=== PATIENT | male | born 1955 | race Caucasian/White ===

== ENCOUNTER 2016-07-21 | Outpatient (CLI) | payer OTHER | END 2016-07-21 00:37 | disposition critical access hospital (66) | DX: R41.82 Altered mental status, unspecified (principal) | CPT/HCPCS: A0425; A0429 ==

== ENCOUNTER 2016-07-21 03:20 | Emergency (ER) | payer OTHER ==
[2016-07-21] MEDS ORDERED: OLANZapine ODT 5 MG TABLET TL ONE (03:58)
[2016-07-21] MEDS ORDERED: LORazepam 0.5 MG TABLET ONE (03:58)
== END 2016-07-21 05:27 | disposition home or self-care (01) ==
DX: F91.9 Conduct disorder, unspecified (principal); R47.89 Other speech disturbances; C43.9 Malignant melanoma of skin, unspecified
CPT/HCPCS: 99283; 99284; A9270

== ENCOUNTER 2016-09-08 10:35 | Emergency (ER) | payer OTHER | END 2016-09-08 12:41 | disposition home or self-care (01) | DX: S09.90XA Unspecified injury of head, initial encounter (principal); W01.0XXA Fall on same level from slipping, tripping and stumbling without subsequent striking against object, initial encounter; F41.9 Anxiety disorder, unspecified; R03.0 Elevated blood-pressure reading, without diagnosis of hypertension; Z85.828 Personal history of other malignant neoplasm of skin ==

== ENCOUNTER 2016-11-29 12:44 | Emergency (ER) | payer OTHER ==
--- NOTE | 2016-11-29 15:38 | ED Physician Documentation ---
PD HPI MHE - Stated complaint Stated Complaint: MHE - Chief complaint Chief Complaint: MHE - History obtained from History obtained from: Patient, Family - History of Present Illness Primary symptom: Depression, Anxiety, Other (insomnia) Timing - onset: Other (he has had some depression, anxiety, and sometimes agitation since chemo ended 09/2015. Has been on several meds without good effect. Seen by PMD yesterday and started on lithium. He says he has had marked polyuria, feeling lightheaded, and nauseated. Feels it is side effects of the lighium.) Contributing factors: Sig other. No: Substance abuse - ETOH, Substance abuse - drugs Similar symptoms before: Diagnosis Review of Systems Constitutional: denies: Fever, Chills Nose: denies: Rhinorrhea / runny nose, Congestion Throat: denies: Sore throat Cardiac: denies: Chest pain / pressure Respiratory: denies: Dyspnea, Cough GI: denies: Abdominal Pain, Nausea, Vomiting, Constipation : reports: Frequency. denies: Dysuria Musculoskeletal: reports: Back pain Neurologic: reports: Generalized weakness PD PAST MEDICAL HISTORY - Past Medical History Past Medical History: Yes Cardiovascular: None Respiratory: None Neuro: None Endocrine/Autoimmune: None GI: None : None HEENT: None Psych: Other Musculoskeletal: None Derm: Other - Past Surgical History Past Surgical History: Yes - Present Medications Home Medications: Ambulatory Orders Medication Instructions Recorded Confirmed Flaxseed Oil [Flaxseed Oil] 1,000 mg PO QAM 10/19/13 11/29/16 Losartan [Cozaar] 100 mg PO QAM 10/19/13 11/29/16 Simvastatin [Zocor] 20 mg PO HS 10/19/13 11/29/16 Tumeric 500 mg PO DAILY 10/19/13 11/29/16 Ubidecarenone [Coq-10] 200 mg PO QAM 10/19/13 11/29/16 Vitamin B Complex Vit C No.4 1,200 mg PO QAM 10/19/13 11/29/16 [Super B Complex] Cholecalciferol (Vitamin D3) 30,000 unit PO DAILY 09/20/14 11/29/16 [Vitamin D3] Amlodipine Besylate 10 mg PO DAILY 06/20/15 11/29/16 Citalopram Hydrobromide [Celexa] 1 tab PO DAILY 08/20/16 11/29/16 Clonazepam 2 mg PO DAILY 10/22/16 11/29/16 Pony 300 mg PO BID 11/29/16 11/29/16 Olanzapine [Zyprexa] 5 mg PO DAILY #30 tablet 11/29/16 - Allergies Allergies/Adverse Reactions: Allergies Allergy/AdvReac Type Severity Reaction Status Date / Time erythromycin base AdvReac Unknown unknown Verified 09/08/16 10:44 [Erythromycin Base] - Social History Does the pt smoke?: No Smoking Status: Never smoker Does the pt drink ETOH?: No Does the pt have substance abuse?: No - Immunizations Immunizations are current?: No Immunizations: TDAP >10years/unknown PD ED PE NORMAL - Vitals Vital signs reviewed: Yes - General General: Alert and oriented X 3, No acute distress, Well developed/nourished - HEENT HEENT: Atraumatic - Neck Neck: Supple, no meningeal sign, No adenopathy - Cardiac Cardiac: RRR, No murmur - Respiratory Respiratory: No respiratory distress - Abdomen Abdomen: Normal bowel sounds, Soft - Back Back: No CVA TTP - Derm Derm: Normal color, Warm and dry, No rash - Extremities Extremities: Normal ROM s pain, No edema, No calf tenderness / cord Results - Vitals Vitals: Vital Signs - 24 hr 11/29/16 11/29/16 12:48 17:14 Temperature 36.5 C 36.5 C Heart Rate 92 78 Respiratory 18 16 Rate Blood Pressure 152/83 H 157/83 H O2 Saturation 97 100 Oxygen O2 Source Room air - Labs Labs: Laboratory Tests 11/29/16 11/29/16 15:15 15:25 Sodium 140 Potassium 4.1 Chloride 103 Carbon Dioxide 26 Anion Gap 11.0 BUN 18 Creatinine 0.8 Estimated GFR (MDRD) 99 Glucose 123 H Calcium 10.1 Total Bilirubin 0.4 AST 33 ALT 49 Alkaline Phosphatase 51 Total Protein 8.3 H Albumin 5.2 Globulin 3.1 Albumin/Globulin Ratio 1.7 Lipase 19 L Urine Opiates Screen NEGATIVE Ur Oxycodone Screen NEGATIVE Urine Methadone Screen NEGATIVE Ur Propoxyphene Screen NEGATIVE Ur Barbiturates Screen NEGATIVE Ur Tricyclics Screen NEGATIVE Ur Phencyclidine Scrn NEGATIVE Ur Amphetamine Screen NEGATIVE U Methamphetamines Scrn NEGATIVE U Benzodiazepines Scrn NEGATIVE Urine Cocaine Screen NEGATIVE U Cannabinoids Screen NEGATIVE Ethyl Alcohol < 5.0 PD MEDICAL DECISION MAKING - ED course Complexity details: considered differential (Patient having side effect from the lithium with just starting it. He and friend say he did well with dose of med he got when he was here few months ago. This was Zyprexa, and this could be good alternative for treating his condition. Talked with Dr. Abarca whoa greed and said to give it a try. ), d/w patient, d/w [employer] consultant (Dr. Abarca) Departure - Departure Disposition: 01 Home, Self Care Clinical Impression: Schizoaffective disorder Qualifiers: Schizoaffective disorder type: unspecified Qualified Code(s): F25.9 - Schizoaffective disorder, unspecified Condition: Stable Record reviewed to determine appropriate education?: Yes Instructions: ED Schizo Affective Disorder Follow-Up: Brock Abarca MD [Primary Care Provider] - Prescriptions: Olanzapine [Zyprexa] 5 mg PO DAILY #30 tablet Comments: Stop the Pony, keep at current dose of the Clonazepam for now. Add Zyprexa 5 mg at night daily. Follow up with Dr. Abarca in a week. Discharge Date/Time: 11/29/16 17:16
[2016-11-29 15:48] LABS: ALBUMIN/GLOBULIN RATIO 1.7 (1.0-2.2); BILIRUBIN,TOTAL 0.4 mg/dL (0.2-1.0); BUN - BLOOD UREA NITROGEN 18 mg/dL (6-20); CALCIUM 10.1 mg/dL (8.5-10.3); CARBON DIOXIDE - CO2 26 mmol/L (21-32); CHLORIDE 103 mmol/L (101-111); CREATININE 0.8 mg/dL (0.6-1.2); GFR - MDRD 99 (>89); GLUCOSE 123 mg/dL (70-100); LIPASE 19 U/L (22-51); POTASSIUM 4.1 mmol/L (3.5-5.0); SODIUM 140 mmol/L (135-145); TOTAL PROTEIN 8.3 g/dL (6.7-8.2)
[2016-11-29] MEDS ORDERED: OLANZapine ODT 5 MG TABLET TL ONE (16:22)
[2016-11-29] MEDS: OLANZapine ODT 5 MG TABLET TL ONE (16:24)
[2016-11-29 17:14] VITALS: BP 157/83
== END 2016-11-29 17:16 | disposition home or self-care (01) ==
LOC: ED 12:44
DX: F25.9 Schizoaffective disorder, unspecified (principal); Z79.899 Other long term (current) drug therapy
CPT/HCPCS: 36415; 80053; 80306; 80320; 83690; 99283; A9270

== ENCOUNTER 2016-12-06 08:07 | Emergency (ER) | payer OTHER ==
[2016-12-06 08:46] LABS: BASOPHILS # (AUTO) 0.1 10^3/uL (0.0-0.1); BASOPHILS % (AUTO) 1.4 %; EOSINOPHILS # (AUTO) 0.2 10^3/uL (0.0-0.7); EOSINOPHILS % (AUTO) 2.8 %; HCT - HEMATOCRIT 42.9 % (42.0-52.0); HGB - HEMOGLOBIN 14.5 g/dL (14.0-18.0); LYMPHOCYTES # (AUTO) 1.8 10^3/uL (1.5-3.5); LYMPHOCYTES % (AUTO) 25.7 %; MEAN CORPUSCULAR HEMOGLOBIN 31.5 pg (27.0-31.0); MEAN CORPUSCULAR HGB CONC 33.7 g/dL (32.0-36.0); MEAN CORPUSCULAR VOLUME 93.6 fL (80.0-94.0); MONOCYTES # (AUTO) 0.6 10^3/uL (0.0-1.0); NEUTROPHILS # (AUTO) 4.5 10^3/uL (1.5-6.6); NEUTROPHILS % (AUTO) 62.1 %; RED BLOOD COUNT 4.59 10^6/uL (4.70-6.10); RED CELL DISTRIBUTION WIDTH 13.2 % (12.0-15.0); UNCORRECTED WHITE BLOOD COUNT 7.2 x10^3/uL; WHITE BLOOD COUNT 7.2 x10^3/uL (4.8-10.8)
[2016-12-06] MEDS ORDERED: OLANZapine ODT 5 MG TABLET TL ONE ×2 (08:49→08:55)
--- NOTE | 2016-12-06 08:51 | ED Physician Documentation ---
PD HPI MHE - Stated complaint Stated Complaint: MHE - Chief complaint Chief Complaint: MHE - History of Present Illness Primary symptom: Depression, Anxiety, Medical clearance. No: Suicidal ideation , Suicide attempt, Psychosis Timing - onset: How many months ago (has been having problems for months, worsening the past couple of weeks. Improved some with Zyprexa the past week, but not much.) Contributing factors: Other (Thought to be related to chemotherapy meds last September 2015, with depression and anxiety since that time.). No: Family ( is very supportive), Substance abuse - ETOH, Substance abuse - drugs Recently seen: Clinic (PMD Dr. Abarca), Emergency Dept (a week ago), Other ( talked with [facility] and has tentative arrangements for inpatient admission, and referred to ER for medical clearance by Juila intake nurse at [facility].) Review of Systems Constitutional: denies: Fever, Chills Eyes: denies: Loss of vision Nose: denies: Rhinorrhea / runny nose, Congestion Throat: denies: Sore throat Cardiac: denies: Chest pain / pressure Respiratory: denies: Cough GI: denies: Abdominal Pain, Vomiting, Diarrhea : denies: Dysuria Neurologic: denies: Focal weakness, Numbness, Syncope, Headache, Head injury Psychiatric: reports: Depressed, Anxiety, Insomnia (though Zyprexa the past week at night has helped him sleep a bit better). denies: Suicidal, Homicidal Immunocompromised: denies: Chemotherapy (not currently, finished chemo September 2015) PD PAST MEDICAL HISTORY - Past Medical History Cardiovascular: None Respiratory: None Neuro: None Endocrine/Autoimmune: None GI: None : None HEENT: None Psych: Other Musculoskeletal: None Derm: Other - Past Surgical History Past Surgical History: Yes - Present Medications Home Medications: Ambulatory Orders Medication Instructions Recorded Confirmed Flaxseed Oil [Flaxseed Oil] 1,000 mg PO QAM 10/19/13 12/06/16 Losartan [Cozaar] 100 mg PO QAM 10/19/13 12/06/16 Simvastatin [Zocor] 20 mg PO HS 10/19/13 12/06/16 Tumeric 500 mg PO DAILY 10/19/13 12/06/16 Ubidecarenone [Coq-10] 200 mg PO QAM 10/19/13 12/06/16 Vitamin B Complex Vit C No.4 1,200 mg PO QAM 10/19/13 12/06/16 [Super B Complex] Cholecalciferol (Vitamin D3) 30,000 unit PO DAILY 09/20/14 12/06/16 [Vitamin D3] Amlodipine Besylate 10 mg PO DAILY 06/20/15 12/06/16 Citalopram Hydrobromide [Celexa] 1 tab PO DAILY 08/20/16 12/06/16 Clonazepam 2 mg PO DAILY 10/22/16 12/06/16 Olanzapine [Zyprexa] 5 mg PO DAILY #30 tablet 11/29/16 12/06/16 - Allergies Allergies/Adverse Reactions: Allergies Allergy/AdvReac Type Severity Reaction Status Date / Time erythromycin base AdvReac Unknown unknown Verified 12/06/16 08:13 [Erythromycin Base] - Social History Does the pt smoke?: No Smoking Status: Never smoker Does the pt drink ETOH?: No Does the pt have substance abuse?: No - Immunizations Immunizations are current?: No Immunizations: TDAP >10years/unknown PD ED PE NORMAL - Vitals Vital signs reviewed: Yes - General General: Alert and oriented X 3, Well developed/nourished - HEENT HEENT: Pharynx benign - Neck Neck: Supple, no meningeal sign, No adenopathy - Cardiac Cardiac: RRR, No murmur - Respiratory Respiratory: Clear bilaterally - Derm Derm: Normal color, Warm and dry - Extremities Extremities: Normal ROM s pain - Neuro Neuro: Alert and oriented X 3, No motor deficit, Normal speech - Psych Psych: No: Normal mood (somewhat flat and anxious) Results - Vitals Vitals: Vital Signs - 24 hr 12/06/16 08:11 Temperature 36.1 C L Heart Rate 79 Respiratory 18 Rate Blood Pressure 128/74 O2 Saturation 99 Oxygen O2 Source Room air - Labs Labs: Laboratory Tests 12/06/16 12/06/16 12/06/16 08:39 08:39 08:39 WBC 7.2 RBC 4.59 L Hgb 14.5 Hct 42.9 MCV 93.6 MCH 31.5 H MCHC 33.7 RDW 13.2 Plt Count 314 MPV 8.0 Neut # 4.5 Lymph # 1.8 [place] # 0.6 Eos # 0.2 Baso # 0.1 Absolute Nucleated RBC 0.00 Nucleated RBCs 0.0 Sodium 140 Potassium 4.0 Chloride 102 Carbon Dioxide 29 Anion Gap 9.0 BUN 24 H Creatinine 0.9 Estimated GFR (MDRD) 86 L Glucose 180 H Calcium 9.5 Magnesium 2.0 Total Bilirubin 0.5 AST 27 ALT 35 Alkaline Phosphatase 48 Total Protein 7.3 Albumin 4.1 Globulin 3.2 Albumin/Globulin Ratio 1.3 Lipase 18 L Vitamin B12 821 TSH 0.44 Urine Color Urine Clarity Urine pH Ur Specific [place] Urine Protein Urine Glucose (UA) Urine Ketones Urine Occult Blood Urine Nitrite Urine Bilirubin Urine Urobilinogen Ur Leukocyte Esterase Ur Microscopic Review Urine Culture Comments Urine Opiates Screen Ur Oxycodone Screen Urine Methadone Screen Ur Propoxyphene Screen Ur Barbiturates Screen Ur Tricyclics Screen Ur Phencyclidine Scrn Ur Amphetamine Screen U Methamphetamines Scrn U Benzodiazepines Scrn Urine Cocaine Screen U Cannabinoids Screen Ethyl Alcohol < 5.0 12/06/16 08:58 WBC RBC Hgb Hct MCV MCH MCHC RDW Plt Count MPV Neut # Lymph # [place] # Eos # Baso # Absolute Nucleated RBC Nucleated RBCs Sodium Potassium Chloride Carbon Dioxide Anion Gap BUN Creatinine Estimated GFR (MDRD) Glucose Calcium Magnesium Total Bilirubin AST ALT Alkaline Phosphatase Total Protein Albumin Globulin Albumin/Globulin Ratio Lipase Vitamin B12 TSH Urine Color YELLOW Urine Clarity CLEAR Urine pH 6.0 Ur Specific [place] 1.015 Urine Protein NEGATIVE Urine Glucose (UA) 100 H Urine Ketones NEGATIVE Urine Occult Blood NEGATIVE Urine Nitrite NEGATIVE Urine Bilirubin NEGATIVE Urine Urobilinogen 0.2 (NORMAL) Ur Leukocyte Esterase NEGATIVE Ur Microscopic Review NOT INDICATED Urine Culture Comments NOT INDICATED Urine Opiates Screen NEGATIVE Ur Oxycodone Screen NEGATIVE Urine Methadone Screen NEGATIVE Ur Propoxyphene Screen NEGATIVE Ur Barbiturates Screen NEGATIVE Ur Tricyclics Screen NEGATIVE Ur Phencyclidine Scrn NEGATIVE Ur Amphetamine Screen NEGATIVE U Methamphetamines Scrn NEGATIVE U Benzodiazepines Scrn NEGATIVE Urine Cocaine Screen NEGATIVE U Cannabinoids Screen NEGATIVE Ethyl Alcohol PD MEDICAL DECISION MAKING - ED course Complexity details: reviewed results, considered differential ( is making arrangements for admission to [facility] and the intake nurse directed them to ED for medical clearance as they have bed for admission. ), d/w family, d/w resourcing consultant (BERTRAM Chaidez able to confirm and arrange admission to [facility]. wanting to take pt by [facility] and this was okay per [facility] nurse. ) Departure - Departure Disposition: 65 Psych Hosp/Unit DC/Xfer Clinical Impression: Anxiety, Depression with anxiety Condition: Stable Record reviewed to determine appropriate education?: Yes
[2016-12-06 08:59] LABS: ALBUMIN/GLOBULIN RATIO 1.3 (1.0-2.2); BILIRUBIN,TOTAL 0.5 mg/dL (0.2-1.0); BUN - BLOOD UREA NITROGEN 24 mg/dL (6-20); CALCIUM 9.5 mg/dL (8.5-10.3); CARBON DIOXIDE - CO2 29 mmol/L (21-32); CHLORIDE 102 mmol/L (101-111); CREATININE 0.9 mg/dL (0.6-1.2); GFR - MDRD 86 (>89); GLUCOSE 180 mg/dL (70-100); LIPASE 18 U/L (22-51); SODIUM 140 mmol/L (135-145); TOTAL PROTEIN 7.3 g/dL (6.7-8.2)
[2016-12-06 09:04] LABS: BILIRUBIN,URINE NEGATIVE (NEGATIVE)
[2016-12-06 09:06] LABS: UA CHARGE (STRIP ONLY) YES; UR CULTURE IF IND NOT INDICATED
[2016-12-06 09:44] LABS: THYROID STIMULATING HORMONE 0.44 uIU/mL (0.34-5.60)
[2016-12-06 12:32] VITALS: BP 141/77
== END 2016-12-06 12:42 ==
LOC: ED 08:07
DX: F32.9 Major depressive disorder, single episode, unspecified (principal); F41.9 Anxiety disorder, unspecified
CPT/HCPCS: 36415; 80053; 80306; 80320; 81003; 82607; 83690; 83735; 84443; 85025; 99283; 99284; A9270; 81001; 87086

== ENCOUNTER 2017-08-05 20:25 | Outpatient (CLI) | payer OTHER ==
[2017-08-05 19:07] LABS: BASOPHILS # (AUTO) 0.1 10^3/uL (0.0-0.1); EOSINOPHILS # (AUTO) 0.1 10^3/uL (0.0-0.7); EOSINOPHILS % (AUTO) 1.4 %; HGB - HEMOGLOBIN 14.7 g/dL (14.0-18.0); LYMPHOCYTES # (AUTO) 2.8 10^3/uL (1.5-3.5); LYMPHOCYTES % (AUTO) 28.3 %; MEAN CORPUSCULAR HEMOGLOBIN 31.2 pg (27.0-31.0); MEAN CORPUSCULAR HGB CONC 33.4 g/dL (32.0-36.0); MEAN CORPUSCULAR VOLUME 93.5 fL (80.0-94.0); MEAN PLATELET VOLUME 8.9 fL (7.4-11.4); MONOCYTES # (AUTO) 0.8 10^3/uL (0.0-1.0); MONOCYTES % (AUTO) 7.7 %; NEUTROPHILS # (AUTO) 6.1 10^3/uL (1.5-6.6); NEUTROPHILS % (AUTO) 61.6 %; PLT - PLATELET COUNT 407 10^3/uL (130-450); RED BLOOD COUNT 4.71 10^6/uL (4.70-6.10); RED CELL DISTRIBUTION WIDTH 13.8 % (12.0-15.0); WHITE BLOOD COUNT 9.9 x10^3/uL (4.8-10.8)
[2017-08-05 19:38] LABS: PT - PROTHROMBIN TIME 11.4 secs (9.9-12.6)
== END 2017-08-05 20:26 | disposition home or self-care (01) ==
LOC: LAB.WCP 20:25
PROVIDERS: ATTEND Physician Assistant Medical
DX: Z78.9 Other specified health status (principal)
CPT/HCPCS: 36415; 85025; 85610

== ENCOUNTER 2017-12-05 08:42 | Emergency (ER) | payer OTHER ==
--- NOTE | 2017-12-05 09:41 | ED Physician Documentation ---
PD HPI NVD - Stated complaint Stated Complaint: VOMITING - Chief complaint Chief Complaint: Abd Pain - History obtained from History obtained from: Patient - History of Present Illness Timing - onset: How many days ago (2-3) Timing - duration: Days Timing - details: Gradual onset Associated symptoms: Abdominal pain, Loss of appetite. No: Fever, Chest pain, Near syncope / syncope, Dysuria Contributing factors: Anticoagulated. No: Sick contact, Bad food, Travel Review of Systems Constitutional: reports: Chills, Myalgias. denies: Fever Ears: denies: Ear pain Nose: reports: Congestion. denies: Rhinorrhea / runny nose Cardiac: reports: Chest pain / pressure GI: reports: Abdominal Pain, Nausea PD PAST MEDICAL HISTORY - Past Medical History Past Medical History: Yes Cardiovascular: None Respiratory: None Endocrine/Autoimmune: None GI: None : None HEENT: None Psych: Other Musculoskeletal: None Derm: Other - Past Surgical History Past Surgical History: Yes - Present Medications Home Medications: Ambulatory Orders Medication Instructions Recorded Confirmed Flaxseed Oil [Flaxseed Oil] 1,000 mg PO QAM 10/19/13 08/26/17 Losartan [Cozaar] 100 mg PO QAM 10/19/13 08/26/17 Ubidecarenone [Coq-10] 200 mg PO QAM 10/19/13 08/26/17 Vitamin B Complex Vit C No.4 1,200 mg PO QAM 10/19/13 08/26/17 [Super B Complex] Cholecalciferol (Vitamin D3) 30,000 unit PO DAILY 09/20/14 08/26/17 [Vitamin D3] Amlodipine Besylate 10 mg PO DAILY 06/20/15 08/26/17 clonazePAM [Clonazepam] 0.5 mg PO DAILY 10/22/16 08/26/17 Escitalopram [Lexapro] 10 mg PO DAILY 01/22/17 08/26/17 OLANZapine [Zyprexa] 10 mg PO DAILY 05/27/17 08/26/17 Dextroamphetamine/Amphetamine 1 cap PO DAILY 08/26/17 08/26/17 [Adderall Xr 5 mg Capsule] Guanfacine HCl 1 tab PO DAILY 08/26/17 08/26/17 Propranolol [Inderal] 2 tab PO DAILY 08/26/17 08/26/17 Docusate Sodium 100 mg PO DAILY #30 capsule 12/05/17 Ondansetron Odt [Zofran] 4 mg TL Q6H PRN #15 tablet 12/05/17 Tramadol HCl 50 mg PO Q6H PRN #20 tablet 12/05/17 - Allergies Allergies/Adverse Reactions: Allergies Allergy/AdvReac Type Severity Reaction Status Date / Time erythromycin base AdvReac Unknown unknown Verified 12/06/16 08:13 [Erythromycin Base] - Social History Does the pt smoke?: No Smoking Status: Never smoker Does the pt drink ETOH?: No Does the pt have substance abuse?: No - Immunizations Immunizations are current?: No Immunizations: TDAP >10years/unknown PD ED PE NORMAL - Vitals Vital signs reviewed: Yes - General General: Alert and oriented X 3, No acute distress, Well developed/nourished - HEENT HEENT: Ears normal, Pharynx benign, Dentition benign. No: Moist mucous membranes - Neck Neck: Supple, no meningeal sign, No bony TTP, No adenopathy, No bruit - Cardiac Cardiac: RRR, No murmur - Respiratory Respiratory: Clear bilaterally - Abdomen Abdomen: Normal bowel sounds, Soft, Non distended, No organomegaly, Other (some tenderness periumbilical, without guarding nor perccussion tendernedd) - Back Back: No CVA TTP, No spinal TTP - Derm Derm: Normal color, Warm and dry Results - Vitals Vitals: Vital Signs - 24 hr 12/05/17 12/05/17 12/05/17 08:56 11:30 13:04 Temperature 36.5 C 36.4 C L Heart Rate 58 L 57 L 57 L Respiratory 20 16 18 Rate Blood Pressure 139/85 H 158/86 H 175/92 H O2 Saturation 97 97 96 Oxygen O2 Source Room air - Labs Labs: Laboratory Tests 12/05/17 12/05/17 10:15 10:15 WBC 7.5 RBC 4.84 Hgb 15.4 Hct 46.5 MCV 96.1 H MCH 31.9 H MCHC 33.2 RDW 14.4 Plt Count 334 MPV 7.8 Neut # (Auto) 4.5 Lymph # (Auto) 1.7 [place] # (Auto) 1.0 Eos # (Auto) 0.1 Baso # (Auto) 0.1 Absolute Nucleated RBC 0.00 Nucleated RBC % 0.1 Sodium 135 Potassium 3.6 Chloride 97 L Carbon Dioxide 28 Anion Gap 10.0 BUN 17 Creatinine 0.8 Estimated GFR (MDRD) 99 Glucose 92 Calcium 9.1 Magnesium 2.2 Total Bilirubin 0.4 AST 23 ALT 22 Alkaline Phosphatase 41 L Total Protein 7.7 Albumin 4.2 Globulin 3.5 Albumin/Globulin Ratio 1.2 Lipase 25 - Rads (name of study) A/P CT Radiology: Prelim report reviewed (no acute process. Normal appendix.) PD MEDICAL DECISION MAKING - ED course Complexity details: reviewed results, re-evaluated patient (improved greatly with IV fluids and meds), considered differential, d/w patient - Sepsis Event Vital Signs: Vital Signs - 24 hr 12/05/17 12/05/17 12/05/17 08:56 11:30 13:04 Temperature 36.5 C 36.4 C L Heart Rate 58 L 57 L 57 L Respiratory 20 16 18 Rate Blood Pressure 139/85 H 158/86 H 175/92 H O2 Saturation 97 97 96 Oxygen O2 Source Room air Departure - Departure Disposition: 01 Home, Self Care Clinical Impression: Vomiting Qualifiers: Vomiting type: unspecified Vomiting Intractability: non-intractable Nausea presence: with nausea Qualified Code(s): R11.2 - Nausea with vomiting, unspecified Abdominal pain Qualifiers: Abdominal location: lower abdomen, unspecified Qualified Code(s): R10.30 - Lower abdominal pain, unspecified Condition: Stable Record reviewed to determine appropriate education?: Yes Instructions: ED Abdominal Pain Unkn Cause, ED Nausea Vomiting Follow-Up: Brock Abarca MD [Primary Care Provider] - Prescriptions: Docusate Sodium 100 mg PO DAILY #30 capsule Ondansetron Odt [Zofran] 4 mg TL Q6H PRN #15 tablet PRN Reason: Nausea / Vomiting Tramadol HCl 50 mg PO Q6H PRN #20 tablet PRN Reason: Pain Comments: Continue usual medications. Add Zofran if needed for nausea and vomiting. Take a mild stool softener daily so you do not get constipated with medications. Add Tylenol or tramadol if needed for cramps and pains. Recheck if not better over the next day or 2. There are no signs of more significant processes on your blood tests or CT scan. This may be some intestinal irritation or a viral type illness Discharge Date/Time: 12/05/17 13:04
[2017-12-05] MEDS ORDERED: ONDANSETRON 4 MG/2 ML VIAL IVP STA ×2 (09:57→11:55)
[2017-12-05] MEDS ORDERED: SODIUM CHLORIDE 0.9% 1,000 ML IV ONE (09:57)
[2017-12-05] MEDS ORDERED: FAMOTIDINE 20 MG/50 ML 50 ML IV ONE (09:57)
[2017-12-05 10:22] LABS: BASOPHILS # (AUTO) 0.1 10^3/uL (0.0-0.1); BASOPHILS % (AUTO) 1.2 %; EOSINOPHILS # (AUTO) 0.1 10^3/uL (0.0-0.7); EOSINOPHILS % (AUTO) 1.7 %; HGB - HEMOGLOBIN 15.4 g/dL (14.0-18.0); LYMPHOCYTES # (AUTO) 1.7 10^3/uL (1.5-3.5); MEAN CORPUSCULAR HEMOGLOBIN 31.9 pg (27.0-31.0); MEAN CORPUSCULAR HGB CONC 33.2 g/dL (32.0-36.0); MEAN CORPUSCULAR VOLUME 96.1 fL (80.0-94.0); MEAN PLATELET VOLUME 7.8 fL (7.4-11.4); MONOCYTES % (AUTO) 13.3 %; NEUTROPHILS # (AUTO) 4.5 10^3/uL (1.5-6.6); NEUTROPHILS % (AUTO) 60.8 %; PLT - PLATELET COUNT 334 10^3/uL (130-450); RED BLOOD COUNT 4.84 10^6/uL (4.70-6.10); RED CELL DISTRIBUTION WIDTH 14.4 % (12.0-15.0); WHITE BLOOD COUNT 7.5 x10^3/uL (4.8-10.8)
[2017-12-05 10:37] LABS: ALBUMIN 4.2 g/dL (3.2-5.5); ALBUMIN/GLOBULIN RATIO 1.2 (1.0-2.2); BILIRUBIN,TOTAL 0.4 mg/dL (0.2-1.0); CALCIUM 9.1 mg/dL (8.5-10.3); CREATININE 0.8 mg/dL (0.6-1.2); MAGNESIUM 2.2 mg/dL (1.7-2.8); TOTAL PROTEIN 7.7 g/dL (6.7-8.2)
[2017-12-05] MEDS ORDERED: IOPAMIDOL-300 100 ML VIAL IVP ONE (10:53)
--- NOTE | 2017-12-05 11:18 | CT Report ---
Procedure Date: 12/05/2017 Accession Number: [id number] / [id number] Procedure: CT - Abdomen/Pelvis W/ CPT Code: FULL RESULT: EXAM: CT ABDOMEN AND PELVIS EXAM DATE: 12/05/2017 10:52 AM. CLINICAL HISTORY: Mid to left abd pain and vomiting 3 days. COMPARISONS: None. TECHNIQUE: Routine helical CT imaging was performed through the abdomen and pelvis. IV contrast: ISOVUE 300 100mL. Enteric contrast: No. Reconstructions: Coronal and sagittal. In accordance with CT protocol optimization, one or more of the following dose reduction techniques were utilized for this exam: automated exposure control, adjustment of mA and/or KV based on patient size, or use of iterative reconstructive technique. FINDINGS: Lung Bases: Unremarkable. Liver: Normal. No masses. Gallbladder/Bile Ducts: Unremarkable. Spleen: Normal. Pancreas: Normal. Adrenal Glands: Normal. Kidneys: Few subcentimeter densities too small to characterize bilaterally. No hydronephrosis Peritoneal Cavity/Bowel: Diverticulosis No free fluid, free air or adenopathy. No masses or acute inflammatory process. The appendix is well visualized and normal. Pelvic Organs: Normal. The bladder and visualized pelvic organs are within normal limits. Vasculature: No aneurysms or other significant abnormality. Bones: No significant abnormality. Other: None. IMPRESSION: 1. Diverticulosis. 2. Normal appendix. 3. Subcentimeter densities in the kidneys too small to characterize RADIA
[2017-12-05 13:05] VITALS: BP 175/92
== END 2017-12-05 13:04 | disposition home or self-care (01) ==
LOC: ED 08:42
DX: R10.30 Lower abdominal pain, unspecified (principal); R11.2 Nausea with vomiting, unspecified; R09.81 Nasal congestion
CPT/HCPCS: 36415; 74177; 80053; 83690; 83735; 85025; 96361; 96365; 96375; 96376; 99283; 99284; Q9967

== ENCOUNTER 2017-12-21 08:20 | Outpatient (CLI) | payer OTHER ==
[2017-12-21] MEDS ORDERED: GADOBUTROL 10 MMOL/10 ML VIAL ONE (08:47)
[2017-12-21] MEDS ORDERED: GADOBUTROL 10 MMOL/10 ML VIAL IVP ONE (09:34)
--- NOTE | 2017-12-21 13:54 | MRI Report ---
Procedure Date: 12/20/2017 Accession Number: [id number] / [id number] Procedure: MRI - Brain W/WO CPT Code: FULL RESULT: EXAM: MRI BRAIN WITHOUT AND WITH CONTRAST EXAM DATE: 12/20/2017 09:43 AM. CLINICAL HISTORY: Malignant melanoma. 18-month history of memory loss, difficulty concentrating and headache. COMPARISON: 10/29/2013. TECHNIQUE: Multiplanar, multisequence T1-weighted and fluid-sensitive MR sequences of the brain were performed. Sequences optimized for routine evaluation. Other: None. IV Contrast: 8 mm Gadavist. FINDINGS: No acute or recent ischemic infarct. No cerebral hemorrhage. No mass effect, midline shift or abnormal subdural fluid collection. Stable moderately prominent nonspecific cerebral white matter disease potentially contributed to by aging and chronic microangiopathy. No hydrocephalus. No developing intracranial enhancing mass or nodule. Contrast opacification of the major dural venous sinuses is present as expected. No abnormal intracranial meningeal enhancement or thickening. No acute sinus or mastoid disease. The major arterial skull base flow voids are present. No focal pathologic appearing marrow signal changes in the skull or clivus. IMPRESSION: 1. No abnormal enhancement or mass to suggest intracranial metastatic disease. 2. No acute abnormalities such as hemorrhage, stroke or hydrocephalus. 3. Stable findings of moderately prominent nonspecific cerebral white matter disease likely contributed to by aging and chronic microangiopathy. RADIA
== END 2017-12-21 08:21 | disposition home or self-care (01) ==
LOC: DI 08:20
PROVIDERS: ATTEND Family Medicine
DX: R51 Headache (principal); H53.2 Diplopia; R90.82 White matter disease, unspecified
CPT/HCPCS: 70553; A9585

== ENCOUNTER 2018-01-13 14:11 | Outpatient (CLI) | payer OTHER | END 2018-01-13 14:12 | disposition home or self-care (01) | LOC: SC 14:11 | PROVIDERS: ATTEND Internal Medicine Pulmonary Disease | DX: G47.00 Insomnia, unspecified (principal) | CPT/HCPCS: 99203; 99212 ==

== ENCOUNTER 2018-02-27 20:39 | Outpatient (CLI) | payer OTHER | END 2018-02-27 20:40 | disposition home or self-care (01) | LOC: SC 20:39 | PROVIDERS: ATTEND Internal Medicine Pulmonary Disease | DX: G47.61 Periodic limb movement disorder (principal); G47.10 Hypersomnia, unspecified | CPT/HCPCS: 95810 ==

== ENCOUNTER 2018-04-07 14:10 | Outpatient (CLI) | payer OTHER | END 2018-04-07 14:11 | disposition home or self-care (01) | LOC: SC 14:10 | PROVIDERS: ATTEND Internal Medicine Pulmonary Disease | DX: G47.61 Periodic limb movement disorder (principal); G47.00 Insomnia, unspecified | CPT/HCPCS: 99212; 99213 ==

== ENCOUNTER 2019-10-15 08:35 | Outpatient (CLI) | payer OTHER ==
[2019-10-15 13:00] LABS: BASOPHILS # (AUTO) 0.1 10^3/uL (0.0-0.1); BASOPHILS % (AUTO) 1.3 %; EOSINOPHILS # (AUTO) 0.1 10^3/uL (0.0-0.7); EOSINOPHILS % (AUTO) 1.5 %; LYMPHOCYTES # (AUTO) 1.7 10^3/uL (1.5-3.5); LYMPHOCYTES % (AUTO) 24.2 %; MEAN CORPUSCULAR HEMOGLOBIN 31.6 pg (27.0-31.0); MEAN CORPUSCULAR HGB CONC 32.3 g/dL (32.0-36.0); MEAN CORPUSCULAR VOLUME 97.9 fL (80.0-94.0); MEAN PLATELET VOLUME 10.9 fL (7.4-11.4); MONOCYTES # (AUTO) 0.8 10^3/uL (0.0-1.0); MONOCYTES % (AUTO) 10.6 %; NEUTROPHILS # (AUTO) 4.5 10^3/uL (1.5-6.6); NEUTROPHILS % (AUTO) 62.1 %; PLT - PLATELET COUNT 376 10^3/uL (130-450); RED BLOOD COUNT 4.75 10^6/uL (4.70-6.10); RED CELL DISTRIBUTION WIDTH 13.7 % (12.0-15.0); WHITE BLOOD COUNT 7.2 x10^3/uL (4.8-10.8)
[2019-10-15 13:33] LABS: ALBUMIN 4.5 g/dL (3.2-5.5); ALBUMIN/GLOBULIN RATIO 1.6 (1.0-2.2); ALKALINE PHOSPHATASE 39 IU/L (42-121); ALT ALANINE AMINOTRANSFERASE 20 IU/L (10-60); AST ASPARTATE AMINOTRANSFERASE 18 IU/L (10-42); BILIRUBIN,TOTAL 0.3 mg/dL (0.2-1.0); BUN - BLOOD UREA NITROGEN 23 mg/dL (6-20); CALCIUM 9.5 mg/dL (8.5-10.3); CARBON DIOXIDE - CO2 31 mmol/L (21-32); CHLORIDE 101 mmol/L (101-111); CHOL/HDL RATIO 4.4 (<5.0); CHOLESTEROL 223 mg/dL; CREATININE 0.8 mg/dL (0.6-1.2); GLUCOSE 92 mg/dL (70-100); HDL CHOLESTEROL 51 mg/dL; LDL CHOLESTEROL,CALCULATED 151 mg/dL; SODIUM 140 mmol/L (135-145); TOTAL PROTEIN 7.4 g/dL (6.7-8.2); VLDL CHOLESTEROL 21 mg/dL
== END 2019-10-15 23:59 | disposition home or self-care (01) ==
LOC: LAB.WCP 08:35
PROVIDERS: ATTEND Physician Assistant Medical
DX: Z00.00 Encounter for general adult medical examination without abnormal findings (principal); E78.5 Hyperlipidemia, unspecified; Z12.5 Encounter for screening for malignant neoplasm of prostate
CPT/HCPCS: 36415; 80053; 80061; 83721; 84153; 84443; 85025

== ENCOUNTER 2020-04-16 18:09 | Outpatient (CLI) | payer OTHER | END 2020-04-16 18:10 | disposition EMS.NT | LOC: EMS 18:09 | PROVIDERS: ATTEND Surgery | DX: T42.4X1A Poisoning by benzodiazepines, accidental (unintentional), initial encounter (principal) ==

== ENCOUNTER 2020-04-21 08:50 | Outpatient (CLI) | payer OTHER ==
[2020-04-21 13:50] LABS: ALBUMIN 4.5 g/dL (3.2-5.5); ALBUMIN/GLOBULIN RATIO 1.3 (1.0-2.2); ALKALINE PHOSPHATASE 45 IU/L (42-121); ALT ALANINE AMINOTRANSFERASE 49 IU/L (10-60); AST ASPARTATE AMINOTRANSFERASE 32 IU/L (10-42); BILIRUBIN,TOTAL 0.6 mg/dL (0.2-1.0); BUN - BLOOD UREA NITROGEN 22 mg/dL (6-20); CALCIUM 9.7 mg/dL (8.5-10.3); CARBON DIOXIDE - CO2 30 mmol/L (21-32); CHLORIDE 99 mmol/L (101-111); CHOL/HDL RATIO 3.9 (<5.0); CHOLESTEROL 250 mg/dL; CREATININE 0.8 mg/dL (0.6-1.2); GLUCOSE 97 mg/dL (70-100); HDL CHOLESTEROL 64 mg/dL; LDL CHOLESTEROL,CALCULATED 172 mg/dL; LDL/HDL RATIO 2.7 (<3.6); SODIUM 141 mmol/L (135-145); TOTAL PROTEIN 7.9 g/dL (6.7-8.2); VLDL CHOLESTEROL 14 mg/dL
== END 2020-04-21 08:51 | disposition home or self-care (01) ==
LOC: LAB.WCP 08:50
PROVIDERS: ATTEND Physician Assistant Medical
DX: E78.5 Hyperlipidemia, unspecified (principal)
CPT/HCPCS: 36415; 80053; 80061; 83721

== ENCOUNTER 2020-10-20 13:45 | Outpatient (CLI) | payer OTHER ==
[2020-10-20 18:53] LABS: BASOPHILS # (AUTO) 0.1 10^3/uL (0.0-0.1); BASOPHILS % (AUTO) 1.2 %; EOSINOPHILS # (AUTO) 0.1 10^3/uL (0.0-0.7); EOSINOPHILS % (AUTO) 1.2 %; HCT - HEMATOCRIT 46.4 % (42.0-52.0); HGB - HEMOGLOBIN 14.8 g/dL (14.0-18.0); LYMPHOCYTES # (AUTO) 2.3 10^3/uL (1.5-3.5); LYMPHOCYTES % (AUTO) 34.2 %; MEAN CORPUSCULAR HEMOGLOBIN 31.1 pg (27.0-31.0); MEAN CORPUSCULAR HGB CONC 31.9 g/dL (32.0-36.0); MEAN CORPUSCULAR VOLUME 97.5 fL (80.0-94.0); MEAN PLATELET VOLUME 10.5 fL (7.4-11.4); MONOCYTES # (AUTO) 0.5 10^3/uL (0.0-1.0); MONOCYTES % (AUTO) 7.8 %; NEUTROPHILS # (AUTO) 3.7 10^3/uL (1.5-6.6); NEUTROPHILS % (AUTO) 55.4 %; PLT - PLATELET COUNT 343 10^3/uL (130-450); RED BLOOD COUNT 4.76 10^6/uL (4.70-6.10); RED CELL DISTRIBUTION WIDTH 13.2 % (12.0-15.0); WHITE BLOOD COUNT 6.7 x10^3/uL (4.8-10.8)
[2020-10-20 19:31] LABS: FOLATE 10.9 ng/mL (5.90 - >24.8)
== END 2020-10-20 23:59 | disposition home or self-care (01) ==
LOC: LAB.WCP 13:45
PROVIDERS: ATTEND Physician Assistant Medical
DX: F32.9 Major depressive disorder, single episode, unspecified (principal); Z12.5 Encounter for screening for malignant neoplasm of prostate; I10 Essential (primary) hypertension
CPT/HCPCS: 36415; 82607; 82746; 84153; 85025

== ENCOUNTER 2021-07-21 09:21 | Outpatient (CLI) | payer OTHER | END 2021-07-21 09:22 | disposition short-term general hospital (02) | LOC: EMS 09:21 | DX: R46.89 Other symptoms and signs involving appearance and behavior (principal); R45.89 Other symptoms and signs involving emotional state | CPT/HCPCS: A0425; A0427 ==

== ENCOUNTER 2021-10-06 12:16 | Outpatient (CLI) | payer OTHER ==
[2021-10-06 17:50] LABS: BASOPHILS # (AUTO) 0.1 10^3/uL (0.0-0.1); BASOPHILS % (AUTO) 1.8 %; EOSINOPHILS % (AUTO) 0.8 %; HCT - HEMATOCRIT 43.2 % (42.0-52.0); HGB - HEMOGLOBIN 14.3 g/dL (14.0-18.0); LYMPHOCYTES # (AUTO) 1.5 10^3/uL (1.5-3.5); LYMPHOCYTES % (AUTO) 28.8 %; MEAN CORPUSCULAR HEMOGLOBIN 31.5 pg (27.0-31.0); MEAN CORPUSCULAR HGB CONC 33.1 g/dL (32.0-36.0); MEAN CORPUSCULAR VOLUME 95.2 fL (80.0-94.0); MEAN PLATELET VOLUME 10.3 fL (7.4-11.4); MONOCYTES # (AUTO) 0.5 10^3/uL (0.0-1.0); NEUTROPHILS % (AUTO) 59.4 %; PLT - PLATELET COUNT 344 10^3/uL (130-450); RED BLOOD COUNT 4.54 10^6/uL (4.70-6.10); RED CELL DISTRIBUTION WIDTH 12.7 % (12.0-15.0); WHITE BLOOD COUNT 5.1 x10^3/uL (4.8-10.8)
[2021-10-06 18:06] LABS: ALBUMIN 4.1 g/dL (3.2-5.5); ALBUMIN/GLOBULIN RATIO 1.4 (1.0-2.2); BILIRUBIN,TOTAL 0.4 mg/dL (0.2-1.0); CALCIUM 9.6 mg/dL (8.5-10.3); CREATININE 0.9 mg/dL (0.6-1.2); TOTAL PROTEIN 7.1 g/dL (6.7-8.2)
== END 2021-10-06 12:17 | disposition home or self-care (01) ==
LOC: LAB.N 12:16
PROVIDERS: ATTEND Physician Assistant Medical
DX: I10 Essential (primary) hypertension (principal); Z12.5 Encounter for screening for malignant neoplasm of prostate
CPT/HCPCS: 36415; 80053; 84153; 85025

== ENCOUNTER 2022-03-19 20:15 | Outpatient (CLI) | payer MEDICARE | END 2022-03-19 20:16 | disposition EMS.NT | LOC: EMS 20:15 | DX: F41.9 Anxiety disorder, unspecified (principal) ==

== ENCOUNTER 2022-03-21 06:38 | Outpatient (CLI) | payer OTHER | END 2022-03-21 06:39 | disposition critical access hospital (66) | LOC: EMS 06:38 | DX: R46.89 Other symptoms and signs involving appearance and behavior (principal); R45.1 Restlessness and agitation; F41.9 Anxiety disorder, unspecified | CPT/HCPCS: A0425; A0429 ==

== ENCOUNTER 2022-03-21 06:50 | Emergency (ER) | payer MEDICARE, OTHER ==
--- NOTE | 2022-03-21 07:36 | ED Physician Documentation ---
PD HPI MHE - Stated complaint Stated Complaint: MHE - Chief complaint Chief Complaint: MHE - History obtained from History obtained from: Patient, Family (spouse), EMS - History of Present Illness Primary symptom: Anxiety, Other (episodes of emotional and physical agitation with writhing movements and crying/confused at times. Episodes for minutes at a time, initially a week or so ago, once or so per day, but increased to several daily past 2 days and repetitive episodes this morning.) Timing - onset: How many weeks ago (1) Contributing factors: Out of meds (he had run out of lorazepam 2 weeks ago and pharmacy did not get refill order, so delay in getting it. It is available at pharmacy today. Was just 0.5 mg nightly though.), Other (had increased dose of Paroxetine from 40 to 60 mg 3 weeks ago. Also tamsulosin added to Doxezosin for troubles urinating. No other med changes.). No: Family, Substance abuse - drugs Similar symptoms before: Has not had sx before (these symptoms are new, according to . he has had anxiety episodes in the past, and is on meds. But has not had the degree of agitation and abruptly like recently, nor the extremity restlessness/movement.) Recently seen: Clinic (seen by his psychiatrist, Dr. Shelby, 3 weeks ago with some med changes. Paroxetine increased from 40 mg to 60 mg. Tamsulosin added for difficulty urinating. was to continue other current meds.) Review of Systems Unable to obtain: Dementia, Other (info from ) Constitutional: denies: Fever Nose: denies: Congestion Cardiac: denies: Chest pain / pressure Respiratory: denies: Dyspnea, Cough GI: denies: Abdominal Pain, Vomiting, Diarrhea Neurologic: denies: Focal weakness, Head injury Psychiatric: reports: Anxiety. denies: Suicidal PD PAST MEDICAL HISTORY - Past Medical History Cardiovascular: None Respiratory: None Neuro: Dementia Endocrine/Autoimmune: None GI: None : None HEENT: None Psych: Anxiety, Bipolar disorder, Post traumatic stress disorder, Other Musculoskeletal: None Derm: Other - Past Surgical History Past Surgical History: Yes - Present Medications Home Medications: Ambulatory Orders Medication Instructions Recorded Confirmed Losartan [Cozaar] 100 mg PO QAM 10/19/13 03/21/22 Cholecalciferol (Vitamin D3) 30,000 unit PO DAILY 09/20/14 03/21/22 [Vitamin D3] Propranolol [Inderal] 20 mg PO DAILY 08/26/17 03/21/22 Doxazosin Mesylate [Cardura] 2 mg PO DAILY PM 03/21/22 03/21/22 LORazepam [Ativan] 0.5 mg PO TID 03/21/22 03/21/22 Methylphenidate HCl 30 mg PO DAILY 03/21/22 03/21/22 PARoxetine HCl [Paxil] 60 mg PO DAILY 03/21/22 03/21/22 QUEtiapine [SEROquel] 50 mg PO TID 03/21/22 03/21/22 Tamsulosin [Flomax] 0.4 mg PO DAILY 03/21/22 03/21/22 - Allergies Allergies/Adverse Reactions: Allergies Allergy/AdvReac Type Severity Reaction Status Date / Time erythromycin base AdvReac Unknown unknown Verified 03/21/22 06:56 [Erythromycin Base] - Social History Does the pt smoke?: No Smoking Status: Never smoker Does the pt drink ETOH?: No Does the pt have substance abuse?: No - Immunizations Immunizations are current?: No Immunizations: TDAP >10years/unknown PD ED PE NORMAL - Vitals Vital signs reviewed: Yes - General General: Well developed/nourished. No: Alert and oriented X 3 (oriented to person and place. history of dementia. He is conversant but slightly anxious. No tremoring noted. ) - HEENT HEENT: PERRL, EOMI (no nystagmus.), Moist mucous membranes, Pharynx benign - Neck Neck: Supple, no meningeal sign, No adenopathy - Cardiac Cardiac: RRR, No murmur - Respiratory Respiratory: Clear bilaterally - Abdomen Abdomen: Soft, Non tender - Derm Derm: Normal color, Warm and dry - Extremities Extremities: No tenderness to palpate, Normal ROM s pain, No edema, No calf tenderness / cord - Neuro Neuro: No motor deficit, No sensory deficit, Normal speech Eye Opening: Spontaneous Motor: Obeys Commands Verbal: Oriented GCS Score: 15 - Psych Psych: No: Normal affect (flat) Results - Vitals Vitals: Vital Signs - 24 hr 03/21/22 03/21/22 06:57 12:52 Temperature 36.4 C L 36.6 C Heart Rate 95 91 Respiratory 16 18 Rate Blood Pressure 173/101 H 151/77 H O2 Saturation 95 98 Oxygen O2 Source Room air - Labs Labs: Laboratory Tests 03/21/22 03/21/22 03/21/22 08:00 08:00 08:00 WBC 10.9 H RBC 4.73 Hgb 15.2 Hct 44.1 MCV 93.2 MCH 32.1 H MCHC 34.5 RDW 12.7 Plt Count 316 MPV 9.8 Neut # (Auto) 9.5 H Lymph # (Auto) 0.7 L [place] # (Auto) 0.7 Eos # (Auto) 0.0 Baso # (Auto) 0.1 Absolute Nucleated RBC 0.00 Nucleated RBC % 0.0 Sodium 141 Potassium 3.9 Chloride 102 Carbon Dioxide 29 Anion Gap 10.0 BUN 22 H Creatinine 0.8 Estimated GFR (MDRD) 97 Glucose 95 Calcium 9.9 Total Bilirubin 0.8 AST 38 ALT 37 Alkaline Phosphatase 61 Total Protein 7.7 Albumin 4.9 Globulin 2.8 Albumin/Globulin Ratio 1.8 Lipase 37 TSH 0.72 Urine Color Urine Clarity Urine pH Ur Specific [place] Urine Protein Urine Glucose (UA) Urine Ketones Urine Occult Blood Urine Nitrite Urine Bilirubin Urine Urobilinogen Ur Leukocyte Esterase Urine RBC Urine WBC Ur Squamous Epith Cells Amorphous Sediment Urine Bacteria Ur Microscopic Review Urine Culture Comments Salicylates < 6.0 Urine Opiates Screen Ur Oxycodone Screen Urine Methadone Screen Ur Propoxyphene Screen Acetaminophen < 10 L Ur Barbiturates Screen Ur Tricyclics Screen Ur Phencyclidine Scrn Ur Amphetamine Screen U Methamphetamines Scrn U Benzodiazepines Scrn Urine Cocaine Screen U Cannabinoids Screen Ethyl Alcohol < 5.0 03/21/22 09:11 WBC RBC Hgb Hct MCV MCH MCHC RDW Plt Count MPV Neut # (Auto) Lymph # (Auto) [place] # (Auto) Eos # (Auto) Baso # (Auto) Absolute Nucleated RBC Nucleated RBC % Sodium Potassium Chloride Carbon Dioxide Anion Gap BUN Creatinine Estimated GFR (MDRD) Glucose Calcium Total Bilirubin AST ALT Alkaline Phosphatase Total Protein Albumin Globulin Albumin/Globulin Ratio Lipase TSH Urine Color LIGHT YELLOW Urine Clarity CLOUDY Urine pH 7.5 Ur Specific [place] 1.015 Urine Protein NEGATIVE Urine Glucose (UA) NEGATIVE Urine Ketones 40 H Urine Occult Blood TRACE-INTA Urine Nitrite NEGATIVE Urine Bilirubin NEGATIVE Urine Urobilinogen 0.2 (NORMAL) Ur Leukocyte Esterase NEGATIVE Urine RBC 0-5 Urine WBC 0-3 Ur Squamous Epith Cells NONE SEEN Amorphous Sediment Marked Urine Bacteria Rare Ur Microscopic Review INDICATED Urine Culture Comments NOT INDICATED Salicylates Urine Opiates Screen NEGATIVE Ur Oxycodone Screen NEGATIVE Urine Methadone Screen NEGATIVE Ur Propoxyphene Screen NEGATIVE Acetaminophen Ur Barbiturates Screen NEGATIVE Ur Tricyclics Screen POSITIVE H Ur Phencyclidine Scrn NEGATIVE Ur Amphetamine Screen NEGATIVE U Methamphetamines Scrn NEGATIVE U Benzodiazepines Scrn NEGATIVE Urine Cocaine Screen NEGATIVE U Cannabinoids Screen NEGATIVE Ethyl Alcohol PD MEDICAL DECISION MAKING - ED course Complexity details: reviewed results (basic labs are okay. ), re-evaluated patient (he is calm and interacting well here, on arrival and continued in ER. Gave PO diazepam on arrival. Has stayed good interaction here, and comfortable with his current condition (baseline).), considered differential (psychomotor agitation episodes the past 1 week or so. had video of couple episodes from this morning, and he is interacting, distressed, restless arms and legs movements. Not seizure appearing. No resting tremor. Consider benzo w/d but was not on much dose. Otherwise could be serotonin related), d/w patient, d/w project management consultant (Dr. Shelby, his psychiatrist, who agrees with decreasing back down the Paroxetine, and has already gotten Rx renewal to pharmacy for the lorazepam. I also wonder if med doses having increased effect given recent weight loss the past few months, also 2 prostate meds are redundant, so will stop one. ) Departure - Departure Disposition: 01 Home, Self Care Clinical Impression: Psychomotor agitation, Side effect of medication Condition: Stable Record reviewed to determine appropriate education?: Yes Follow-Up: Shae Hussein PA-C [Primary Care Provider] - JAE SHELBY MD [Physician No Access] - Comments: I think the symptoms Mitesh is having are likely medication side effects. In particular I am thinking serotonin related. I talked with Dr. Shelby and the agreed suggestions for medication changes are to: Decrease the paroxetine back down to 40 mg from the current 60 mg. Resume your lorazepam prescription; it should be available at the pharmacy to hand picker. Stop the doxazosin prostate medicine and just continue with the tamsulosin. Stay well-hydrated and continue your other usual medicines. Presume the restlessness and agitation episodes will decrease over the next few days and hopefully just be stopped for now with the resumption of the lorazepam. The effect of the paroxetine will take a week or so to decrease. You do not want to just stop the paroxetine but to go to the lower dose that he was on previously. is in agreement on these medication changes. Discharge Date/Time: 03/21/22 12:53
[2022-03-21] MEDS ORDERED: diazePAM 5 MG TABLET PO STA (07:52)
[2022-03-21 08:04] LABS: BASOPHILS # (AUTO) 0.1 10^3/uL (0.0-0.1); BASOPHILS % (AUTO) 0.5 %; EOSINOPHILS % (AUTO) 0.1 %; HCT - HEMATOCRIT 44.1 % (42.0-52.0); HGB - HEMOGLOBIN 15.2 g/dL (14.0-18.0); LYMPHOCYTES # (AUTO) 0.7 10^3/uL (1.5-3.5); LYMPHOCYTES % (AUTO) 6.1 %; MEAN CORPUSCULAR HEMOGLOBIN 32.1 pg (27.0-31.0); MEAN CORPUSCULAR HGB CONC 34.5 g/dL (32.0-36.0); MEAN CORPUSCULAR VOLUME 93.2 fL (80.0-94.0); MEAN PLATELET VOLUME 9.8 fL (7.4-11.4); MONOCYTES # (AUTO) 0.7 10^3/uL (0.0-1.0); MONOCYTES % (AUTO) 6.2 %; NEUTROPHILS # (AUTO) 9.5 10^3/uL (1.5-6.6); NEUTROPHILS % (AUTO) 86.8 %; PLT - PLATELET COUNT 316 10^3/uL (130-450); RED BLOOD COUNT 4.73 10^6/uL (4.70-6.10); RED CELL DISTRIBUTION WIDTH 12.7 % (12.0-15.0); WHITE BLOOD COUNT 10.9 x10^3/uL (4.8-10.8)
[2022-03-21 08:23] LABS: ACETAMINOPHEN < 10 ug/mL (10-30); ALBUMIN 4.9 g/dL (3.2-5.5); ALBUMIN/GLOBULIN RATIO 1.8 (1.0-2.2); ALKALINE PHOSPHATASE 61 IU/L (42-121); ALT ALANINE AMINOTRANSFERASE 37 IU/L (10-60); AST ASPARTATE AMINOTRANSFERASE 38 IU/L (10-42); BILIRUBIN,TOTAL 0.8 mg/dL (0.2-1.0); BUN - BLOOD UREA NITROGEN 22 mg/dL (6-20); CALCIUM 9.9 mg/dL (8.5-10.3); CARBON DIOXIDE - CO2 29 mmol/L (21-32); CHLORIDE 102 mmol/L (101-111); CREATININE 0.8 mg/dL (0.6-1.2); ETOH - ETHANOL < 5.0 mg/dL; GFR - MDRD 97 (>89); GLUCOSE 95 mg/dL (70-100); LIPASE 37 U/L (22-51); POTASSIUM 3.9 mmol/L (3.5-5.0); SALICYLATE < 6.0 mg/dL; SODIUM 141 mmol/L (135-145); TOTAL PROTEIN 7.7 g/dL (6.7-8.2)
[2022-03-21 09:16] LABS: MUDS CUTOFF CONCENTRATIONS CUTOFF CONC BELOW:
[2022-03-21 09:17] LABS: BILIRUBIN,URINE NEGATIVE (NEGATIVE); GLUCOSE, URINE (UA) NEGATIVE (NEGATIVE); KETONES,URINE (UA) 40 mg/dL (NEGATIVE); LEUKOCYTE ESTERASE, URINE NEGATIVE (NEGATIVE); NITRITE,URINE NEGATIVE (NEGATIVE); OCCULT BLOOD,URINE TRACE-INTA (NEGATIVE); PH,URINE 7.5 PH (5.0-7.5); PROTEIN,URINE NEGATIVE (NEGATIVE); UROBILINOGEN,URINE 0.2 (NORMAL) E.U./dL (NORMAL)
[2022-03-21 09:18] LABS: CLARITY,URINE CLOUDY (CLEAR)
[2022-03-21 09:26] LABS: AMORPHOUS SEDIMENT,UR Marked /LPF; BACTERIA,URINE Rare /HPF (None Seen); RBC,URINE 0-5 /HPF (0-5); SQUAMOUS EPITHELIAL CELL,UR NONE SEEN (<= Few); WBC,URINE 0-3 /HPF (0-3)
[2022-03-21 09:29] LABS: AMPHETAMINE SCREEN,URINE NEGATIVE (NEGATIVE); BARBITURATE SCREEN,UR NEGATIVE (NEGATIVE); BENZODIAZEPINES SCREEN, URINE NEGATIVE (NEGATIVE); COCAINE SCREEN URINE NEGATIVE (NEGATIVE); METHADONE SCREEN, URINE NEGATIVE (NEGATIVE); METHAMPHETAMINES SCREEN, URINE NEGATIVE (NEGATIVE); OPIATE SCREEN, URINE NEGATIVE (NEGATIVE); OXYCODONE SCREEN, URINE NEGATIVE (NEGATIVE); PROPOXYPHENE SCREEN, URINE NEGATIVE (NEGATIVE); THC CANNABINOID SCREEN, URINE NEGATIVE (NEGATIVE); TRICYCLIC ANTIDEPRESSANT,URINE POSITIVE (NEGATIVE)
[2022-03-21 12:53] VITALS: BP 151/77
== END 2022-03-21 12:53 | disposition home or self-care (01) ==
LOC: EDUNIT# → ED 06:50
DX: R45.1 Restlessness and agitation (principal); T50.905A Adverse effect of unspecified drugs, medicaments and biological substances, initial encounter
CPT/HCPCS: 36415; 80053; 80306; 80307; 81001; 83690; 84443; 85025; 99283; 99284; A9270; G0480; 80320; 80329; 81003; 87086

== ENCOUNTER 2023-09-02 09:39 | Outpatient (CLI) | payer MEDICARE | END 2023-09-02 09:40 | disposition home or self-care (01) | LOC: LAB 09:39 | PROVIDERS: ATTEND Physician Assistant | DX: R10.11 Right upper quadrant pain (principal) ==

== ENCOUNTER 2023-09-04 06:52 | Outpatient (CLI) | payer MEDICARE ==
[2023-09-04] MEDS ORDERED: DIATRIZOATE MEGLU/DIATRIZO SOD 30 ML BOTTLE PO ONE (07:11)
[2023-09-04] MEDS ORDERED: iohexoL-300 100 ML VIAL ONE (07:11)
--- NOTE | 2023-09-04 09:21 | CT Report ---
PROCEDURE: Abdomen/Pelvis W INDICATIONS: ABD PAIN CONTRAST: iohex 300 100ml TECHNIQUE: After the administration of intravenous contrast, a CT scan of the abdomen and pelvis was performed. Images were recorded and evaluated at appropriate window settings. Reformats: coronal and sagittal. F or radiation dose reduction, the following was used: automated exposure control, adjustment of mA and /or kV according to patient size. COMPARISON: 12/05/2018 FINDINGS: Image quality: Diagnostic Lower chest: Basal atelectasis. Normal heart size. Possible mild reflux in the distal esophagus. Liver: Unremarkable Gallbladder and biliary system: Mildly distended, gallstones. Nondilated biliary system Pancreas: Unremarkable Spleen: Nonenlarged Adrenals: No discrete nodules Kidneys: Subcentimeter lesions are too small to characterize, usually cysts. No solid mass. Nonobstru cting left lower pole punctate calculus. No hydronephrosis. Vessels and lymph nodes: Main portal vein appears patent. There is no abdominal aortic aneurysm or pa thologic lymph nodes by size criteria. Bowel and peritoneum: No evidence of small bowel obstruction. No pathologic ascites. There is moderat e fecal loading including a moderate rectal stool ball. Colonic diverticula, without convincing signs of acute inflammation. The appendix is nondilated. Body wall: Small fat-containing umbilical hernia. Pelvis: Heterogeneous enlarged prostate is not well evaluated on this study. The bladder is thick wal led but underdistended and difficult to evaluate. Small left fat-containing inguinal hernia. Bones: No acute or suspicious osseous findings. Sacroiliac ankylosis. Degenerative changes. Height lo ss at the superior endplate of L2 is likely a Schmorl's node, new from 2018. IMPRESSION: No small bowel obstruction. No active bowel inflammation on CT. Moderate fecal loading and moderate r ectal stool ball. Colonic diverticulosis. Consider correlation with age-appropriate colonoscopy resul ts. Thick-walled urinary bladder, which is underdistended. Heterogeneous enlarged prostate, consider bettie elation with PSA cystoscopy, and/or MRI if indicated. Possible mild reflux in the distal esophagus, with small amount of oral contrast. This is not well ev aluated on CT. Other findings as above. Reviewed by: Jesus Richard MD on 09/04/2023 9:20 AM PDT Approved by: Jesus Richard MD on 09/04/2023 9:20 AM PDT Station ID: [id number]
[2023-09-04] MEDS: DIATRIZOATE MEGLU/DIATRIZO SOD 30 ML BOTTLE PO ONE (14:46)
[2023-09-04] MEDS: iohexoL-300 100 ML VIAL IVP ONE (14:46)
== END 2023-09-04 06:53 | disposition home or self-care (01) ==
LOC: DI 06:52
PROVIDERS: ATTEND Physician Assistant
DX: K57.30 Diverticulosis of large intestine without perforation or abscess without bleeding (principal); N40.0 Benign prostatic hyperplasia without lower urinary tract symptoms; R10.11 Right upper quadrant pain
CPT/HCPCS: 74177; Q9963; Q9967

== ENCOUNTER 2023-10-10 11:56 | Emergency (ER) | payer MEDICARE ==
--- NOTE | 2023-10-10 12:43 | XRAY Report ---
PROCEDURE: Chest 1V INDICATIONS: SOA TECHNIQUE: One view of the chest was acquired. COMPARISON: None. FINDINGS: Surgical changes and devices: None. Lungs and pleura: No pleural effusions or pneumothorax. Lungs are clear. Mediastinum: Mediastinal contours appear normal. Heart size is normal. Bones and chest wall: No suspicious bony lesions. Overlying soft tissues appear unremarkable. IMPRESSION: No acute cardiopulmonary process. Reviewed by: Emilio Campbell MD on 10/10/2023 12:42 PM PDT Approved by: Emilio Campbell MD on 10/10/2023 12:42 PM PDT Station ID: [id number]
--- NOTE | 2023-10-10 12:59 | ED Physician Documentation ---
History of Present Illness - Stated complaint Stated Complaint: WHEEZING/SOA - Chief complaint Chief Complaint: Resp - History obtained from History obtained from: Patient, Family - Additonal information Additional information: 68-year-old male with a history of dementia presents with his after an episode of coughing and wheezing at home. The patient had perhaps mild wheezing last night but denies any shortness of breath. Today he was feeling well and then he ate a peanut butter sandwich. Was eating cereal when she had a little bit of difficulty swallowing it and then started coughing and sounded wheezy according to his . He has no history of lung disease, no history of asthma or COPD, does not use any inhalers. He has not had any chest pain, denies any fever or chills, and no recent cough or other URI symptoms. He feels well at this time but he apparently was having enough difficulty earlier that they wanted to be checked out to make sure he did not aspirate or develop pneumonia. Review of Systems Constitutional: reports: Reviewed and negative Eyes: reports: Reviewed and negative Ears: reports: Reviewed and negative Nose: reports: Reviewed and negative Throat: reports: Reviewed and negative Cardiac: reports: Reviewed and negative Respiratory: reports: Cough, Wheezing GI: reports: Reviewed and negative : reports: Reviewed and negative Skin: reports: Reviewed and negative Musculoskeletal: reports: Reviewed and negative Neurologic: reports: Reviewed and negative Psychiatric: reports: Reviewed and negative Endocrine: reports: Reviewed and negative PD PAST MEDICAL HISTORY - Past Medical History Past Medical History: Yes Cardiovascular: None Respiratory: None Neuro: Dementia Endocrine/Autoimmune: None GI: None : None HEENT: None Psych: Anxiety, Bipolar disorder, Post traumatic stress disorder, Other Musculoskeletal: None Derm: Other - Past Surgical History Past Surgical History: Yes - Present Medications Home Medications: Ambulatory Orders Medication Instructions Recorded Confirmed Losartan [Cozaar] 100 mg PO QAM 10/19/13 09/30/23 Cholecalciferol (Vitamin D3) 30,000 unit PO DAILY 09/20/14 09/30/23 [Vitamin D3] Propranolol [Inderal] 20 mg PO DAILY 08/26/17 09/30/23 Doxazosin Mesylate [Cardura] 2 mg PO DAILY PM 03/21/22 09/30/23 LORazepam [Ativan] 0.5 mg PO TID 03/21/22 09/30/23 Methylphenidate HCl 40 mg PO DAILY 03/21/22 09/30/23 PARoxetine HCL [Paxil] 60 mg PO DAILY 03/21/22 09/30/23 QUEtiapine [SEROquel] 100 mg PO TID 03/21/22 09/30/23 Tamsulosin [Flomax] 0.4 mg PO DAILY 03/21/22 09/30/23 Amlodipine Besylate [Norvasc] 5 mg PO BID 08/29/22 09/30/23 - Allergies Allergies/Adverse Reactions: Allergies Allergy/AdvReac Type Severity Reaction Status Date / Time erythromycin base AdvReac Unknown unknown Verified 10/10/23 12:21 [Erythromycin Base] - Social History Does the pt smoke?: No Smoking Status: Never smoker Does the pt drink ETOH?: No Does the pt have substance abuse?: No - Immunizations Immunizations are current?: No Immunizations: TDAP >10years/unknown - POLST Patient has POLST: No PD ED PE NORMAL - Vitals Vital signs reviewed: Yes - General General: Alert and oriented X 3, No acute distress, Well developed/nourished - HEENT HEENT: Atraumatic, Moist mucous membranes, Pharynx benign - Neck Neck: Supple, no meningeal sign, No adenopathy, No JVD - Cardiac Cardiac: RRR, No murmur, No gallop, No rub, Strong equal pulses - Respiratory Respiratory: No respiratory distress, Clear bilaterally - Abdomen Abdomen: Normal bowel sounds, Soft, Non tender, Non distended - Derm Derm: Normal color, Warm and dry, No rash Results - Vitals Vitals: Vital Signs - 24 hr 10/10/23 12:12 Temperature 36.5 C Heart Rate 57 L Respiratory 22 Rate Blood Pressure 116/71 O2 Saturation 97 Oxygen O2 Source Room air - Rads (name of study) No standard instances Relevant Findings:: Final report received PD Medical Decision Making - ED course Complexity details: reviewed results, re-evaluated patient, considered differential, d/w patient, d/w family ED course: 68-year-old male with history of dementia presented after a possible aspiration event earlier today. He arrives here, well-appearing, no acute distress, oxygenating well on room air. His lung sounds are completely clear and there is no wheezing or other signs of pneumonia or reactive airway. We did obtain an x- ray to evaluate further and this was negative. Patient was reassured by these findings, I do not think any additional workup is indicated at this time as vital signs are stable, patient breathing very comfortably on room air, and lungs are clear. He was advised however if he develops any increasing shortness of breath or fever over the next several days to return for reevaluation. Patient and state that he has historically no difficulty swallowing and this was an isolated event therefore no concern for ongoing dysphagia at this time. Patient discharged home in stable condition. Departure - Departure Disposition: 01 Home, Self Care Clinical Impression: Aspiration into airway Qualifiers: Encounter type: initial encounter Qualified Code(s): T17.908A - Unspecified foreign body in respiratory tract, part unspecified causing other injury, initial encounter Condition: Good Instructions: ED Wheezing Comments: You presented after wheezing and difficulty breathing likely due to a minor aspiration event. It seems to have cleared up as your lungs are now clear, and your x-ray does not show any signs of pneumonia or aspirated fluid. In some cases, the effects of aspiration show up later therefore if you develop increasing shortness of breath or if fever or chest pain, return to the ER. Forms: PCP List
[2023-10-10 13:23] VITALS: BP 122/67; O2SAT 98
== END 2023-10-10 13:14 | disposition home or self-care (01) ==
LOC: ED 11:56
DX: T17.928A Food in respiratory tract, part unspecified causing other injury, initial encounter (principal); W44.F3XA Food entering into or through a natural orifice, initial encounter; Y92.009 Unspecified place in unspecified non-institutional (private) residence as the place of occurrence of the external cause; F03.90 Unspecified dementia, unspecified severity, without behavioral disturbance, psychotic disturbance, mood disturbance, and anxiety; Z79.899 Other long term (current) drug therapy
CPT/HCPCS: 99283

== ENCOUNTER 2023-10-22 11:58 | Outpatient (CLI) | payer MEDICARE | END 2023-10-22 23:52 | disposition critical access hospital (66) | LOC: EMS 11:58 | DX: R29.810 Facial weakness (principal) | CPT/HCPCS: A0425; A0429 ==

== ENCOUNTER 2023-10-22 12:09 | Emergency (ER) | payer MEDICARE ==
[2023-10-22] MEDS ORDERED: iohexoL-300 100 ML VIAL ONE (12:23)
--- NOTE | 2023-10-22 12:24 | ED Physician Documentation ---
PD HPI FOCAL NEURO - Stated complaint Stated Complaint: L FACIAL DROOP - History obtained from History obtained from: Patient, EMS - Additional information Additional information: 68-year-old gentleman with history of melanoma in remission, no history of intracranial metastases. He also has a history of hypertension on losartan, depression, anxiety but no history of stroke issues, TIA, diabetes, or heart issues. He presents for a left facial droop and trouble speaking. It was first noted approximately 48 hours ago and sounds like it has been progressive since. He denies any trouble with the arm or leg on that side. No difficulty walking. There is no headache associated with this. PD PAST MEDICAL HISTORY - Past Medical History Cardiovascular: None Respiratory: None Neuro: Dementia Endocrine/Autoimmune: None GI: None : None HEENT: None Psych: Anxiety, Bipolar disorder, Post traumatic stress disorder, Other Musculoskeletal: None Derm: Other - Past Surgical History Past Surgical History: Yes - Present Medications Home Medications: Ambulatory Orders Medication Instructions Recorded Confirmed Losartan [Cozaar] 100 mg PO QAM 10/19/13 10/22/23 Cholecalciferol (Vitamin D3) 30,000 unit PO DAILY 09/20/14 10/22/23 [Vitamin D3] Propranolol [Inderal] 20 mg PO DAILY 08/26/17 10/22/23 LORazepam [Ativan] 0.5 mg PO TID 03/21/22 10/22/23 Methylphenidate HCl 40 mg PO DAILY 03/21/22 10/22/23 PARoxetine HCL [Paxil] 60 mg PO DAILY 03/21/22 10/22/23 QUEtiapine [SEROquel] 100 mg PO TID 03/21/22 10/22/23 Amlodipine Besylate [Norvasc] 5 mg PO BID 08/29/22 10/22/23 - Allergies Allergies/Adverse Reactions: Allergies Allergy/AdvReac Type Severity Reaction Status Date / Time erythromycin base AdvReac Unknown unknown Verified 10/22/23 12:20 [Erythromycin Base] - Social History Does the pt smoke?: No Smoking Status: Never smoker Does the pt drink ETOH?: No Does the pt have substance abuse?: No - Immunizations Immunizations are current?: No Immunizations: TDAP >10years/unknown - POLST Patient has POLST: No PD ED PE NORMAL - Vitals Vital signs reviewed: Yes - General General: Alert and oriented X 3, No acute distress - HEENT HEENT: PERRL, EOMI - Neck Neck: Supple, no meningeal sign, No bony TTP - Cardiac Cardiac: RRR, No murmur - Respiratory Respiratory: No respiratory distress, Clear bilaterally - Abdomen Abdomen: Non tender - Neuro Neuro: Alert and oriented X 3 Eye Opening: Spontaneous Motor: Obeys Commands Verbal: Oriented GCS Score: 15 NIHSS - Time Time: 12:17 - Level of Consciousness Level of consciousness: (0) Alert, Keenly responsive LOC Questions: (0) Answers both Q's correct LOC Commands: (0) Performs both correctly - Gaze Best Gaze: (0) Normal - Visual Visual: (0) No loss - Facial Palsy Facial Palsy: (2) Partial paralysis (left side, spares the forehead) - Motor Arms (both separate) Motor Arm (right): (0) No drift Motor Arm (left): (0) No drift - Motor Legs (both separate) Motor Leg (right): (0) No drift Motor Leg (left): (0) No drift - Limb Ataxia Limb Ataxia: (1) Present in 1 limb (Interestingly, he has trouble with ataxia testing in the left upper extremity. Is not true ataxia per se, he closes 1 eye while he is doing it and claims it is more of a vision problem, that said he is not able to make contact with his left upper extremity.) - Sensory Sensory: (0) Normal - Best Language Best Language: (0) No aphasia - Dysarthria Dysarthria: (1) [id number]-[id number] dysarthria - Extinction and Inattention (formally neg Extinction and inattention: (0) No abnormality - Total Score/Results Total Score/Result: 4 Results - Vitals Vitals: Vital Signs - 24 hr 10/22/23 12:20 Temperature 36.3 C L Heart Rate 57 L Respiratory 12 Rate Blood Pressure 120/73 O2 Saturation 98 Oxygen O2 Source Room air - EKG (time done) 1249 EKG releavant findings:: EKG personally interpreted by author of this note. Relevant findings are: Rate: Rate (enter#) (57) Rhythm: NSR [place]: LAD Intervals: Prolonged [place] QRS: Normal Ischemia: Normal ST segments - Labs Labs: Laboratory Tests 10/22/23 10/22/23 10/22/23 12:28 12:28 12:28 WBC 7.3 RBC 4.38 L Hgb 13.5 L Hct 42.7 MCV 97.5 H MCH 30.8 MCHC 31.6 L RDW 13.4 Plt Count 271 MPV 9.8 Neut # (Auto) 4.1 Lymph # (Auto) 2.0 Gates # (Auto) 0.9 Eos # (Auto) 0.2 Baso # (Auto) 0.1 Absolute Nucleated RBC 0.00 Nucleated RBC % 0.0 PT 11.3 INR 1.0 Sodium 141 Potassium 4.1 Chloride 105 Carbon Dioxide 33 H Anion Gap 3.0 L BUN 20 Creatinine 1.0 Estimated GFR (MDRD) 75 L Glucose 109 H Calcium 10.1 Total Bilirubin 0.2 AST 11 ALT 11 Alkaline Phosphatase 62 Total Protein 6.5 Albumin 3.9 Globulin 2.6 Albumin/Globulin Ratio 1.5 Lipase 23 - Rads (name of study) CT of the head and CT angiography of the head were negative for obvious mass, stroke, nor significant vascular disease. Relevant Findings:: Final report received, EMP independent interpretation of test MRI Brain Relevant Findings:: Final report received, EMP independent interpretation of test PD Medical Decision Making - ED course ED course: 68-year-old gentleman presents with strokelike symptoms. He is clearly not a tPA candidate given the potentially 48-hour plus time span this has been going on. The differential would include a worsening of metastatic melanoma with intracranial mets or other primary tumor. It does not appear like a Collier's palsy as it spares the forehead and he has the other findings as well. Subsequently the arrived and said she first noticed the changes this morning at 11 AM. The patient episodes does have some cognitive issues so his history of the time of onset is in question. She is not convinced of when it started though. She says he has been slowing down over the last couple of days but really only noticed the facial droop at 11 AM. She does think he was probably normal this morning at 7 or 8 when he ate breakfast because he was swallowing okay. This brings the question of tPA back into the specter of possibility and we discussed the risks and benefits as well as the still unclear time of onset. After discussion the declined thrombolytics. She also given the history that he had a recent positive Cologuard with "98%" certainty that he has colon cancer. He has been referred to a surgeon for further workup and treatment, but that also gives us pause as far as a potential source of bleeding for thrombolytics. Subsequently MRI of the brain showed no masses or acute stroke. He did seem better at that point with better finger-nose testing on the left, less slurred speech and improved facial droop. He may have had a TIA. DAPT was considered but given the likelihood of colon cancer would just do baby aspirin instead. His blood pressure is controlled. Departure - Departure Disposition: 01 Home, Self Care Clinical Impression: Facial droop, Dementia Condition: Good Record reviewed to determine appropriate education?: Yes Instructions: ED Transient Ischemic Attack Comments: Is not clear what caused your symptoms today. It may have been a TIA. The MRI and the CAT scan of the head were normal and there were no blockages in your arteries. Take a baby aspirin a day, follow-up with your primary care PA with consideration for neurology referral. Return for new or worsening symptoms.
[2023-10-22 12:36] LABS: BASOPHILS # (AUTO) 0.1 10^3/uL (0.0-0.1); BASOPHILS % (AUTO) 1.2 %; EOSINOPHILS # (AUTO) 0.2 10^3/uL (0.0-0.7); EOSINOPHILS % (AUTO) 2.5 %; HCT - HEMATOCRIT 42.7 % (42.0-52.0); HGB - HEMOGLOBIN 13.5 g/dL (14.0-18.0); LYMPHOCYTES % (AUTO) 26.9 %; MEAN CORPUSCULAR HEMOGLOBIN 30.8 pg (27.0-31.0); MEAN CORPUSCULAR HGB CONC 31.6 g/dL (32.0-36.0); MEAN CORPUSCULAR VOLUME 97.5 fL (80.0-94.0); MEAN PLATELET VOLUME 9.8 fL (7.4-11.4); MONOCYTES # (AUTO) 0.9 10^3/uL (0.0-1.0); MONOCYTES % (AUTO) 12.9 %; NEUTROPHILS # (AUTO) 4.1 10^3/uL (1.5-6.6); NEUTROPHILS % (AUTO) 56.2 %; PLT - PLATELET COUNT 271 10^3/uL (130-450); RED BLOOD COUNT 4.38 10^6/uL (4.70-6.10); RED CELL DISTRIBUTION WIDTH 13.4 % (12.0-15.0); WHITE BLOOD COUNT 7.3 x10^3/uL (4.8-10.8)
[2023-10-22 12:47] LABS: ALBUMIN 3.9 g/dL (3.2-5.5); ALBUMIN/GLOBULIN RATIO 1.5 (1.0-2.2); BILIRUBIN,TOTAL 0.2 mg/dL (0.2-1.0); CALCIUM 10.1 mg/dL (8.5-10.3); POTASSIUM 4.1 mmol/L (3.5-4.5); TOTAL PROTEIN 6.5 g/dL (6.4-8.9)
--- NOTE | 2023-10-22 12:59 | CT Report ---
PROCEDURE: Head W/O Stroke Protocol INDICATIONS: Neuro deficit, acute, stroke suspected TECHNIQUE: Noncontrast 4.5 mm thick angled axial sections acquired from the foramen magnum to the vertex, with c oronal reformats. For radiation dose reduction, the following was used: automated exposure control, adjustment of mA and/or kV according to patient size. COMPARISON: 12/21/2017 MRI FINDINGS: Image quality: Diagnostic CSF spaces: Basal cisterns are patent. Lateral ventricles are symmetric. Volume: Vascular calcifications. Periventricular white matter disease is commonly seen with chronic m icroangiopathy. Volume loss is present. These findings are mild to moderate. Brain: No large territory loss of dalal-white differentiation or acute hemorrhage. Craniofacial structures: No acute craniofacial abnormality where visualized IMPRESSION: No acute intracranial hemorrhage. Called to the ED. This study fulfills neurological imaging criteria for inclusion or exclusion of acute stroke therapie s based on available published neurological imaging guidelines. Reviewed by: Jesus Richard MD on 10/22/2023 12:58 PM PDT Approved by: Jesus Richard MD on 10/22/2023 12:58 PM PDT Station ID: [id number]
[2023-10-22 13:08] LABS: PT - PROTHROMBIN TIME 11.3 secs (9.9-12.6)
--- NOTE | 2023-10-22 13:08 | CT Report ---
PROCEDURE: Angio Head/Neck INDICATIONS: CVA sx TECHNIQUE: After the administration of intravenous contrast, 1 mm thick sections acquired from the aortic arch t hrough the [place]. 3-dimensional ssrbtnc-ovkuzyetu-xjwlxkrocz (MIP) and/or volume renderin g reformats were acquired of the central intracranial vasculature and neck separately. For radiation dose reduction, the following was used: automated exposure control, adjustment of mA and/or kV acco rding to patient size. CONTRAST: Omni 300 80ml COMPARISON: Same-day head CT, 12/21/2017 FINDINGS: Image quality: Diagnostic Head angiography Anterior circulation: ICAs: Mild cavernous calcifications ACAs: normal and symmetric MCAs: normal and symmetric AComm: no aneurysm Venous sinuses: Not well assessed on this study Posterior circulation: Dominance: Left Vertebral arteries: no stenosis, occlusion, or aneurysm Basilar artery: unremarkable PComms: no aneurysm manufacturers service representative: normal and symmetric Neck angiography Aortic arch and subclavian arteries: Mild atherosclerotic calcifications CCAs: no stenosis, occlusion, or aneurysm. ICA origins (by NASCET criteria): No significant narrowing. Mild atherosclerotic calcifications ICAs: no stenosis, occlusion or aneurysm. ECAs: origins are patent. Vertebral arteries: unremarkable Soft tissues: no significant mass, aneurysm, or lymphadenopathy Lung apices: no pneumothorax Bones: no acute or suspicious abnormality. IMPRESSION: No high-grade stenosis or large vessel occlusion. If there is high concern for infarction, consider M RI. Reviewed by: Jesus Richard MD on 10/22/2023 1:07 PM PDT Approved by: Jesus Richard MD on 10/22/2023 1:07 PM PDT Station ID: [id number]
[2023-10-22] MEDS: iohexoL-300 100 ML VIAL IVP ONE (13:28)
[2023-10-22] MEDS ORDERED: GADOTERATE MEGLUMINE 7.5 MMOL/15 ML VIAL ONE (14:12)
--- NOTE | 2023-10-22 15:43 | MRI Report ---
PROCEDURE: Brain W/WO INDICATIONS: L facial droop, vision prob, hx melanoma CONTRAST: clariscan 15ml TECHNIQUE: Noncontrast axial T1 spin echo, axial T2 fast spin echo, sagittal and axial FLAIR, coronal T2 fast sp in echo, axial gradient echo, axial diffusion and ADC through the brain. After the administration of contrast, axial and coronal T1 spin echo with fat saturation through the brain. COMPARISON: 12/21/2017. Correlation is also made with the accompanying imaging. FINDINGS: Image quality: Motion artifact is noted. CSF spaces: Basal cisterns are patent. No extra-axial fluid collections. Ventricles are normal in size and shape. Brain: No midline shift. No intracranial bleeds or masses. No abnormal intracranial enhancement. There is cerebral volume loss for age. There is periventricular white matter chronic small vessel is chemic change. The brainstem appears normal. Diffusion-weighted images demonstrate no acute ischemi c insults. No chronic ischemic insults. Normal intravascular flow voids are present. Skull and face: Calvarial marrow is normal in signal. Orbits appear normal. Sinuses: Mild mucosal thickening can be seen within the sphenoid sinuses, with milder mucosal thicke aayush seen elsewhere within the paranasal sinuses. IMPRESSION: No findings of acute or subacute infarction are seen. No masses or abnormal enhancement can be seen. Reviewed by: Rodo Ashley MD on 10/22/2023 2:42 PM ESTELLE Approved by: Rodo Ashley MD on 10/22/2023 2:42 PM ESTELLE Station ID: [id number]
[2023-10-22 16:09] VITALS: BP 156/82; O2SAT 100
[2023-10-22] MEDS: GADOTERATE MEGLUMINE 7.5 MMOL/15 ML VIAL IVP ONE (18:49)
== END 2023-10-22 16:06 | disposition home or self-care (01) ==
LOC: EDUNIT# → ED 12:09
DX: R29.810 Facial weakness (principal); F03.90 Unspecified dementia, unspecified severity, without behavioral disturbance, psychotic disturbance, mood disturbance, and anxiety; I10 Essential (primary) hypertension; Z79.899 Other long term (current) drug therapy
CPT/HCPCS: 36415; 70450; 70496; 70498; 70553; 80053; 83690; 85025; 85610; 93005; 99283; 99284; Q9967

== ENCOUNTER 2023-12-02 11:48 | Day surgery (SDC) | payer MEDICARE ==
[2023-12-02] MEDS: LACTATED RINGERS 600 ML IV ONE (11:14)
[~2023-12-02 11:48] MED LIST: BACITRACIN ZINC OINT 1 PACKET TOP ONE; BUPIVACAINE 0.5% PF 10 ML VIAL ONE; LIDOCAINE-MPF 1% 30 ML VIAL ONE; ceFAZolin 2 GM VIAL ONE
[2023-12-02] MEDS: LACTATED RINGERS 1,000 ML IV ONE (11:56)
[2023-12-02] MEDS ORDERED: LIDOCAINE-MPF 1% 30 ML VIAL ONE (12:19)
[2023-12-02] MEDS ORDERED: LIDOCAINE-PF 2% 10 ML AMP SUBQ ONE (12:32)
[2023-12-02] MEDS ORDERED: MIDAZOLAM 2 MG/2 ML VIAL ONE (12:32)
[2023-12-02] MEDS ORDERED: PROPOFOL 200 MG/20 ML VIAL IVP ONE (12:32)
[2023-12-02] MEDS ORDERED: fentaNYL 100 MCG/2 ML VIAL ONE (12:32)
--- NOTE | 2023-12-02 13:01 | ANESTHESIA ---
Pre-Anesthesia VS, & Labs - Diagnosis R spermatocele - Procedure R spermatocelectomy Vital Signs: Temp Pulse Resp BP Pulse Ox O2 Flow Rate 37 C 84 14 165/99 H 99 12/02/23 12:10 12/02/23 12:10 12/02/23 12:10 12/02/23 12:10 12/02/23 12:10 Height: 5 ft 8.5 in Weight (kg): 80 kg Body Mass Index: 26.4 BMI Classification: Overweight - NPO >8 hours Home Medications and Allergies Home Medications: Ambulatory Orders Ashwagandha Root Extract [Ashwagandha] 450 mg PO DAILY 11/26/23 Lion's Garrett Mushroom 400 mg PO DAILY 11/26/23 Sleep Essentials 1 tab PO QPM 11/26/23 Losartan [Cozaar] 100 mg PO QAM 10/19/13 Cholecalciferol (Vitamin D3) [Vitamin D3] 5,000 unit PO DAILY 09/20/14 Propranolol [Inderal] 20 mg PO DAILY 08/26/17 LORazepam [Ativan] 0.5 mg PO TID 03/21/22 PARoxetine HCL [Paxil] 40 mg PO DAILY 03/21/22 QUEtiapine [SEROquel] 200 mg PO TID 03/21/22 Amlodipine Besylate [Norvasc] 5 mg PO BID 08/29/22 Ashwagandha Root Extract [Ashwagandha] 450 mg PO DAILY 11/26/23 Lion's Garrett Mushroom 400 mg PO DAILY 11/26/23 Sleep Essentials 1 tab PO QPM 11/26/23 Allergies/Adverse Reactions: Allergies Allergy/AdvReac Type Severity Reaction Status Date / Time erythromycin base AdvReac Unknown unknown Verified 12/02/23 12:09 [Erythromycin Base] Anes History & Medical History - Anesthetic History Anesthesia Complications: reports: No previous complications Family history of Anesthesia Complications: Denies Family history of Malignant Hyperthermia: Denies - Medical History Cardiovascular: reports: Hypertension Pulmonary: reports: None Gastrointestinal: reports: None Urinary: reports: Incontinence 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: Dementia (chemo induced) Musculoskeletal: reports: None Endocrine/Autoimmune: reports: None Blood Disorders: reports: None Skin: reports: Other Smoking Status: Never smoker History of Cancer?: Yes (myeloma) - Surgical History General: reports: Colonoscopy Exam General: Alert, Oriented x3, Cooperative, Other (spouse describes chemo induced demntia r/t myeloma tx in past) Dental: Poor dentition (none loose) Mouth Openin Fingerbreadth Neck Mobility: Normal Mallampati classification: II Thyromental Distance: 4-6 cm Respiratory: Lungs clear, Normal breath sounds Cardiovascular: Regular rate Neurological: Normal speech Mental/Cognitive Status: Alert/Oriented X3, Normal for patient Plan Anesthesia Type: General Consent for Procedure(s) Verified and Reviewed: Yes Code Status: Attempt Resuscitation ASA classification: 3-Severe systemic disease Is this case an emergency?: No
[2023-12-02] MEDS ORDERED: ONDANSETRON 4 MG/2 ML VIAL IVP PRN ×3 (13:04→13:59)
[2023-12-02] MEDS ORDERED: fentaNYL 100 MCG/2 ML VIAL IVP PRN ×2 (13:04→13:30)
[2023-12-02] MEDS ORDERED: NALOXONE 0.4 MG/ML VIAL IVP PRN ×2 (13:04→13:30)
[2023-12-02] MEDS ORDERED: ATROPINE ABBOJECT 1 MG/10 ML SYRINGE IVP PRN ×2 (13:04→13:30)
[2023-12-02] MEDS ORDERED: MORPHINE 2 MG/ML CARPUJECT IVP PRN ×2 (13:04→13:30)
[2023-12-02] MEDS ORDERED: DEXAMETHASONE 4 MG/ML VIAL ONE (13:04)
[2023-12-02] MEDS ORDERED: METOCLOPRAMIDE 10 MG/2 ML VIAL IVP PRN ×2 (13:04→13:30)
[2023-12-02] MEDS ORDERED: ePHEDrine 50 MG/ML VIAL IVP PRN ×2 (13:04→13:30)
[2023-12-02] MEDS: LIDOCAINE 1% 50 ML MDV SUBQ ONE ×2 (13:17)
[2023-12-02] MEDS: BUPIVACAINE 0.5% PF 30 ML VIAL SUBQ ONE ×2 (13:17)
[2023-12-02] MEDS ORDERED: HYDROmorphone 0.5 MG/0.5 ML SYRINGE IVP PRN (13:30)
[2023-12-02] MEDS: LACTATED RINGERS 200 ML IV ONE (13:51)
[2023-12-02] MEDS ORDERED: LACTATED RINGERS 1,000 ML IV SCH ×2 (14:00)
--- NOTE | 2023-12-02 14:06 | Discharge Plan ---
Discharge Plan Problem Reviewed?: Yes Disposition: Home, Self Care Condition: Good Prescriptions: Docusate Sodium 100Mg Capsule [Colace 100Mg Capsule] 100 mg PO DAILY #7 cap oxyCODONE [Roxicodone] 5 mg PO Q4H PRN #10 tablet PRN Reason: Pain Diet: Regular Activity Restrictions: Additional Comments (as instructed) Shower Restrictions: No Driving Restrictions: No Instruction Topics: Hydrocelectomy Surg Additional Instructions or Follow Up instructions: Your discharge instructions say you had a hydrocele removal but you actually had a spermatocele removal. These are virtually identical procedures and so the postoperative management is the same You will be contacted for follow-up in [address] to [address] Naidu No Smoking: If you smoke, Please STOP! Call for help. Follow-up with: Hernán Naidu MD [Provider Admit Priv/Credential] -
[2023-12-02] MEDS ORDERED: HYDROmorphone 0.5 MG/0.5 ML SYRINGE ONE (14:09)
--- NOTE | 2023-12-02 14:12 | OPERATIVE REPORT ---
Operative Report - General Procedure Date: 12/02/23 Planned Procedure: Right spermatocelectomy Pre-Op Diagnosis: right spermatocele Procedure Performed: Right spermatocelectomy Post Op Diagnosis: Right spermatocele - Procedure Note Primary Surgeon: Evangelista Anesthesia Provider: KEVIN Sutton Anesthesia Technique: General LMA Pathology: right spermatocele Estimated Blood Loss (mL): 2 Findings: Two 5cm cystic structures removed en bloc consistent with spermatocelectomy Complications: none - Other Other Information/Narrative: After informed consent was obtained the patient was brought to the OR and laid in supine position. The patient was anesthetized per anesthesia protocols and prepped and draped in usual sterile fashion. A formal timeout was performed confirming the patient, procedure and laterality. He was noted to have a posterior scrotal swelling consistent with a spermatocele with a palpable normal testicle. 1% lidocaine was placed in the midline raphae in the dependent portion of the scrotum. Approximately 4cm incision was made and dissected using sharp dissection and electrocautery down to the level of the tunica vaginalis. This was incised and the testicle and spermatic cord were delivered. A cord block was performed. He was noted to have two 5 cm cystic lesions immediately posterior to the testicle and attached the epididymis consistent with epididymal cysts. Using a combination of sharp dissection and electrocautery these lesions were carefully dissected away and off of the testicle and spermatic cord. Cautery was used for spot hemostasis. The epididymis was left intact. A 3-0 Vicryl was used to reapproximate the tunica vaginalis in a jaboulay fashion. The testicle and cord were placed back in the scrotum in the orthotopic position. There was excellent hemostasis but spot cautery was used for any oozing areas inside the scrotum. The area was irrigated with copious saline. The dartos was closed with running 3-0 vicryl suture. The skin was then closed using running 3-0 chromic suture. The incision was dressed with gauze and a Tegaderm. Fluffs and scrotal support were placed. This concluded the procedure and the patient tolerated the procedure well. All counts were correct. The patient was brought to the PACU without further incident. He will follow-up in 4 to 6 weeks time
[2023-12-02] MEDS: HYDROmorphone 0.5 MG/0.5 ML SYRINGE IVP PRN (14:13)
[2023-12-02] MEDS: LORazepam 0.5 MG TABLET PO SCH (14:34)
[2023-12-02 14:48] VITALS: BP 157/92; O2SAT 95
[2023-12-02] MEDS ORDERED: HYDROcod/ACETAM 5/325 MG TABLET ONE (14:55)
[2023-12-02] MEDS: HYDROcod/ACETAM 5/325 MG TABLET PO PRN (14:59)
--- NOTE | 2023-12-02 16:56 | ANESTHESIA POST OP EVALUATION ---
Anesthesia Post Eval - Post Anesthesia Eval Vitals: Last Vital Signs Temp 36.9 C 12/02/23 14:47 Pulse 72 12/02/23 14:47 Resp 14 12/02/23 14:47 BP 157/92 H 12/02/23 14:47 Pulse Ox 95 12/02/23 14:47 O2 Flow Rate CV Function Including HR & BP: Stable Pain Control: Satisfactory Nausea & Vomiting: Negative Mental Status: Baseline Respiratory Status: Airway Patent Hydration Status: Satisfactory Anesthesia Complications: None
== END 2023-12-02 11:49 | disposition home or self-care (01) ==
LOC: SDS 11:48
PROVIDERS: ATTEND Urology
PROC: 0VB Male Reproductive System, Excision (ICD-10-PCS; principal; 2023-12-02 13:15)
DX: N43.42 Spermatocele of epididymis, multiple (principal); R32 Unspecified urinary incontinence; I10 Essential (primary) hypertension; Z79.82 Long term (current) use of aspirin
CPT/HCPCS: 54840; A9270; J1170; J7120

== ENCOUNTER 2023-12-19 07:21 | Outpatient (CLI) | payer MEDICARE ==
[2023-12-19 07:39] LABS: BASOPHILS # (AUTO) 0.1 10^3/uL (0.0-0.1); BASOPHILS % (AUTO) 1.1 %; EOSINOPHILS # (AUTO) 0.2 10^3/uL (0.0-0.7); EOSINOPHILS % (AUTO) 2.3 %; HCT - HEMATOCRIT 40.7 % (42.0-52.0); HGB - HEMOGLOBIN 13.3 g/dL (14.0-18.0); LYMPHOCYTES # (AUTO) 1.6 10^3/uL (1.5-3.5); LYMPHOCYTES % (AUTO) 21.7 %; MEAN CORPUSCULAR HEMOGLOBIN 31.1 pg (27.0-31.0); MEAN CORPUSCULAR HGB CONC 32.7 g/dL (32.0-36.0); MEAN CORPUSCULAR VOLUME 95.3 fL (80.0-94.0); MONOCYTES # (AUTO) 0.7 10^3/uL (0.0-1.0); MONOCYTES % (AUTO) 8.7 %; NEUTROPHILS # (AUTO) 4.9 10^3/uL (1.5-6.6); NEUTROPHILS % (AUTO) 65.7 %; PLT - PLATELET COUNT 436 10^3/uL (130-450); RED BLOOD COUNT 4.27 10^6/uL (4.70-6.10); RED CELL DISTRIBUTION WIDTH 12.9 % (12.0-15.0); WHITE BLOOD COUNT 7.4 x10^3/uL (4.8-10.8)
[2023-12-19 07:52] LABS: CHOL/HDL RATIO 3.6 (<5.0); CHOLESTEROL 205 mg/dL; HDL CHOLESTEROL 57 mg/dL; LDL CHOLESTEROL,CALCULATED 133 mg/dL; LDL/HDL RATIO 2.3 (<3.6); TRIGLYCERIDES 76 mg/dL (48-352); VLDL CHOLESTEROL 15 mg/dL
== END 2023-12-19 07:22 | disposition home or self-care (01) ==
LOC: LAB 07:21
PROVIDERS: ATTEND Physician Assistant
DX: G45.9 Transient cerebral ischemic attack, unspecified (principal); E78.5 Hyperlipidemia, unspecified; D64.9 Anemia, unspecified
CPT/HCPCS: 36415; 80061; 83721; 85025

== ENCOUNTER 2024-03-06 09:22 | Day surgery (SDC) | payer MEDICARE ==
[2024-03-06] MEDS: LACTATED RINGERS 1,000 ML IV ONE (09:47)
--- NOTE | 2024-03-06 10:49 | HISTORY & PHYSICAL EXAMINATION ---
Chief Complaint - Chief Complaint Chief Complaint: here for colonoscopy History of Present Illness - History Obtained From Records Reviewed: yes History obtained from: pt Exam Limitations: none - History of Present Illness HPI Comment/Other: normal colonoscopy 2011. here for screening. 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: Dementia (chemo induced) Endocrine/Autoimmune: reports: None GI: reports: None : reports: Incontinence HEENT: reports: Chronic vision loss Psych: reports: Depression, Anxiety, Panic attacks, Post traumatic stress disorder Musculoskeletal: reports: None Derm: reports: Other MRSA Hx?: No - Past Surgical History General: reports: Colonoscopy - POLST Patient has POLST: No Meds/Allgy - Home Medications Home Medications: Ambulatory Orders Medication Instructions Recorded Confirmed Losartan [Cozaar] 100 mg PO QAM 10/19/13 03/06/24 Cholecalciferol (Vitamin D3) 5,000 unit PO DAILY 09/20/14 03/06/24 [Vitamin D3] Propranolol [Inderal] 20 mg PO DAILY 08/26/17 03/06/24 LORazepam [Ativan] 0.5 mg PO TID 03/21/22 03/06/24 PARoxetine HCL [Paxil] 40 mg PO DAILY 03/21/22 03/06/24 QUEtiapine [SEROquel] 200 mg PO TID 03/21/22 03/06/24 Amlodipine Besylate [Norvasc] 5 mg PO BID 08/29/22 03/06/24 Ashwagandha Root Extract 450 mg PO DAILY 11/26/23 03/06/24 [Ashwagandha] Lion's Garrett Mushroom 400 mg PO DAILY 11/26/23 03/06/24 Sleep Essentials 1 tab PO QPM 11/26/23 03/06/24 Docusate Sodium 100Mg Capsule 100 mg PO DAILY #7 cap 12/02/23 03/06/24 [Colace 100Mg Capsule] - Allergies Allergies/Adverse Reactions: Allergies Allergy/AdvReac Type Severity Reaction Status Date / Time erythromycin base Allergy Severe Unknown Verified 03/06/24 09:55 [Erythromycin Base] Review of Systems - Other Findings Other Findings: 10 pt ros as above otherwise unremarkable Exam - Vital Signs Reviewed Vital Signs: Yes Vital Signs: Vital Signs x48h Temp Pulse Resp BP Pulse Ox 03/06/24 09:47 36.0 C L 88 16 152/94 H 98 - Physical Exam General Appearance: positive: No acute distress, Alert Eyes Bilateral: positive: PERRL, EOMI Neck: positive: No JVD, Trachea midline Respiratory: positive: No respiratory distress Cardiovascular: positive: Regular rate & rhythm Abdomen: positive: No distention Neurologic/Psychiatric: positive: Oriented x3 Conclusion/Plan - Problem List (1) Colon cancer screening Conclusion/Plan: plan colonoscopy. parq held and consent obtained
--- NOTE | 2024-03-06 10:49 | ANESTHESIA ---
Pre-Anesthesia VS, & Labs - Diagnosis screening exam - Procedure colonoscopy Vital Signs: Temp Pulse Resp BP Pulse Ox O2 Flow Rate 36.0 C L 88 16 152/94 H 98 03/06/24 09:47 03/06/24 09:47 03/06/24 09:47 03/06/24 09:47 03/06/24 09:47 Height: 5 ft 8 in Weight (kg): 84.2 kg Body Mass Index: 28.2 BMI Classification: Overweight - NPO >8 hours Home Medications and Allergies Losartan [Cozaar] 100 mg PO QAM 10/19/13 Cholecalciferol (Vitamin D3) [Vitamin D3] 5,000 unit PO DAILY 09/20/14 Propranolol [Inderal] 20 mg PO DAILY 08/26/17 LORazepam [Ativan] 0.5 mg PO TID 03/21/22 PARoxetine HCL [Paxil] 40 mg PO DAILY 03/21/22 QUEtiapine [SEROquel] 200 mg PO TID 03/21/22 Amlodipine Besylate [Norvasc] 5 mg PO BID 08/29/22 Ashwagandha Root Extract [Ashwagandha] 450 mg PO DAILY 11/26/23 Lion's Garrett Mushroom 400 mg PO DAILY 11/26/23 Sleep Essentials 1 tab PO QPM 11/26/23 Allergies/Adverse Reactions: Allergies Allergy/AdvReac Type Severity Reaction Status Date / Time erythromycin base Allergy Severe Unknown Verified 03/06/24 09:55 [Erythromycin Base] Anes History & Medical History - Anesthetic History Anesthesia Complications: reports: No previous complications - Medical History Cardiovascular: reports: Hypertension Pulmonary: reports: None Gastrointestinal: reports: None Urinary: reports: Incontinence 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: Dementia (chemo induced) Musculoskeletal: reports: None Endocrine/Autoimmune: reports: None Blood Disorders: reports: None Skin: reports: Other Smoking Status: Never smoker Psychosocial: reports: No issues indicated History of Cancer?: Yes (stage 4 melanoma, s/p chemo) - Surgical History General: reports: Colonoscopy Dermatologic: reports: Skin cancer surgery Exam General: Alert, Oriented x3, Cooperative, No acute distress Dental: Poor dentition Mouth Openin Fingerbreadth Neck Mobility: Normal Mallampati classification: II Thyromental Distance: 4-6 cm Mental/Cognitive Status: Alert/Oriented X3, Normal for patient Plan Anesthesia Type: General, Total IV Consent for Procedure(s) Verified and Reviewed: Yes Code Status: Attempt Resuscitation ASA classification: 3-Severe systemic disease Is this case an emergency?: No
[2024-03-06] MEDS ORDERED: PROPOFOL 500 MG/50 ML 500 MG/50 ML VIAL ONE (11:37)
[2024-03-06] MEDS ORDERED: PROPOFOL 200 MG/20 ML VIAL IVP ONE (11:37)
[2024-03-06] MEDS: LACTATED RINGERS 500 ML IV ONE (11:59)
[2024-03-06 12:15] VITALS: BP 110/69; O2SAT 96
--- NOTE | 2024-03-06 14:03 | ANESTHESIA POST OP EVALUATION ---
Anesthesia Post Eval - Post Anesthesia Eval Vitals: Last Vital Signs Temp 36.1 C L 03/06/24 11:59 Pulse 64 03/06/24 12:12 Resp 14 03/06/24 12:12 BP 110/69 03/06/24 12:12 Pulse Ox 96 03/06/24 12:12 O2 Flow Rate CV Function Including HR & BP: Stable Pain Control: Satisfactory Nausea & Vomiting: Negative Mental Status: Baseline Respiratory Status: Airway Patent Hydration Status: Satisfactory Anesthesia Complications: None
== END 2024-03-06 09:23 | disposition home or self-care (01) ==
LOC: SDS 09:22
PROVIDERS: ATTEND Surgery
PROC: 0DBM8ZX Excision of Descending Colon, Via Natural or Artificial Opening Endoscopic, Diagnostic (ICD-10-PCS; 2024-03-06)
PROC: 0DBH8ZZ Excision of Cecum, Via Natural or Artificial Opening Endoscopic (ICD-10-PCS; 2024-03-06)
PROC: 0DBK8ZZ Excision of Ascending Colon, Via Natural or Artificial Opening Endoscopic (ICD-10-PCS; principal; 2024-03-06 10:30)
DX: Z12.11 Encounter for screening for malignant neoplasm of colon (principal); D12.2 Benign neoplasm of ascending colon; D12.0 Benign neoplasm of cecum; K57.30 Diverticulosis of large intestine without perforation or abscess without bleeding; I10 Essential (primary) hypertension; Z85.820 Personal history of malignant melanoma of skin
CPT/HCPCS: 45380; J7120